=== PATIENT | male | born 1975 | race Caucasian/White ===

== ENCOUNTER → 2016-08-09 | Outpatient (CLI) | payer OTHER ==
[2016-08-09 20:40] LABS: Basophils # (A) 0.1 k/uL (0-0.2); Basophils % (A) 2 %; Eosinophils # (A) 0.2 k/uL (0-0.7); Eosinophils % (A) 3 %; HCT 45.8 % (39.0-53.0); HDW 2.68; HGB 14.9 gm/dL (13.0-17.5); Immature Gran Flag Slight; Luc # (Auto) 0.16; Luc % (Auto) 3; Lymphocytes # (A) 1.2 k/uL (1.0-4.8); Lymphocytes % (A) 17 %; MCH 27.8 pg (25.0-35.0); MCHC 32.5 g/dL (31.0-37.0); MCV 85.5 fL (80.0-100.0); Mean Platelet Volume 10.9; Monocytes # (A) 0.5 k/uL (0-1.0); Monocytes % (A) 7 %; Neutrophils # (A) 4.6 k/uL (1.3-7.7); Neutrophils % (A) 69 %; RBC 5.36 m/uL (4.30-5.90); RDW 13.6 % (11.5-15.5); WBC 6.7 k/uL (3.8-10.6); WBC (Perox) 6.63
[2016-08-09 20:58] LABS: ALT 48 U/L (21-72); AST 31 U/L (17-59); Alkaline Phosphatase 72 U/L (38-126); Anion Gap 11 mmol/L; Blood Urea Nitrogen 10 mg/dL (9-20); Calcium 9.2 mg/dL (8.4-10.2); Carbon Dioxide 30 mmol/L (22-30); Chloride 102 mmol/L (98-107); Cholesterol 177 mg/dL (<200); Glucose 111 mg/dL (74-99); HDL Cholesterol 31 mg/dL (40-60); Non-African American GFR(MDRD) >60 (>60 ml/min/1.73 sqM); Potassium 4.3 mmol/L (3.5-5.1); Sodium 143 mmol/L (137-145); Total Bilirubin 0.8 mg/dL (0.2-1.3); Triglycerides 89 mg/dL (<150)
== END | disposition home or self-care (01) ==
LOC: MMGSC 12:16
PROVIDERS: ATTEND Family Medicine
DX: R63.5 Abnormal weight gain (principal)
CPT/HCPCS: 36415; 80053; 80061; 84439; 84443; 85025

== ENCOUNTER → 2016-12-23 | Outpatient (CLI) | payer OTHER | LOC: MMGSC 16:43 | PROVIDERS: ATTEND Family Medicine | DX: H10.9 Unspecified conjunctivitis (principal) | CPT/HCPCS: 87070; 87205 ==

== ENCOUNTER → 2017-08-14 | Outpatient (CLI) | payer OTHER, MEDICAID ==
--- NOTE | 2017-08-14 15:22 | US ---
EXAMINATION TYPE: US scrotum with doppler. Grayscale and color Doppler Duplex imaging performed of t he scrotum. DATE OF EXAM: 08/14/2017 COMPARISON: NONE CLINICAL HISTORY: N50.89 testicular swelling and some pain x 1 week; gave history of varicose vein ross rgery EXAM MEASUREMENTS: TESTICLES: Right Testicle: 5.0 x 3.8 x 2.1 cm Left Testicle: 6.1 x 5.1 x 3.4 cm EPIDIDYMIS HEAD: Right Epididymis: 2.0 x 1.8 x 1.4 cm Left Epididymis: 0.7 x 0.8 x 0.5 cm Grayscale, color Doppler, spectral Doppler imaging performed of the scrotum. Right epididymal head cyst noted = 1.5 x 1.5 x 1.1cm. Multiple small calcifications scattered throughout bilateral testicle. Left epididymal body cyst = 0.4 x 0.4 x 0.4cm. Enlarged left testicle with heterogeneous appearance a nd hypervascularity and as compared to right testicle. Multiple varicoceles noted inferior epididymis bilaterally as veins are dilated > 2.5mm without Valsa lva Maneuver. Increased vascularity noted to the left testis. No evident testicular torsion. IMPRESSION: Findings could represent orchitis on the left, correlate, follow-up to exclude underlying mass. Testicular microlithiasis, consider urology consult. Bilateral varicoceles.
== END | disposition home or self-care (01) ==
LOC: RADUSWWP 14:24
PROVIDERS: ATTEND Family Medicine
DX: I86.1 Scrotal varices (principal); N50.89 Other specified disorders of the male genital organs
CPT/HCPCS: 76870; 93975

== ENCOUNTER → 2017-09-11 | Outpatient (CLI) | payer OTHER, MEDICAID ==
--- NOTE | 2017-09-12 09:30 | US ---
EXAMINATION TYPE: US scrotum with doppler. Grayscale and color Doppler Duplex imaging performed of t ravi scrotum. DATE OF EXAM: 09/11/2017 COMPARISON: US 08/14/2017 CLINICAL HISTORY: D40.12 Left testicular mass. Patient has finished a antibiotics since prior exam. EXAM MEASUREMENTS: TESTICLES: Right Testicle: 5.7 x 2.0 x 2.9 cm Left Testicle: 6.6 x 3.4 x 4.2 cm EPIDIDYMIS HEAD: Right Epididymis: 1.4 x 1.4 cm Left Epididymis: 1.9 x 1.4 cm Doppler performed to assess for testicular vascularity; good bilateral color flow and waveforms are s een. There is no evidence of testicular torsion. Presence of hydroceles: small amount of fluid around right testicle Presence of varicoceles: noted under bilateral testicle. Right testicle demonstrates microlithiasis. There is a cystic structure near epi head measures 1.2 x 1.2 cm, could represent epididymal cyst or spermatocele. Left testicle is diffusely heterogeneous and hypervascular, with small cystic area seen measures 0.5 cm. Varicoceles bilaterally, on the right th ey are filled with echoes representing slow flow, but light up with valsalva. IMPRESSION: 1. Right epididymal cyst or spermatocele. 2. Varicoceles present bilaterally. 3. Microlithiasis right testicle. Microlithiasis has been associated with cancer. 4. Heterogenous appearance of the left testicle. This has a similar appearance to the comparison stud y.
== END | disposition home or self-care (01) ==
LOC: RADUSWWP 15:39
PROVIDERS: ATTEND Urology
DX: I86.1 Scrotal varices (principal); N50.89 Other specified disorders of the male genital organs; D40.12 Neoplasm of uncertain behavior of left testis; Z88.8 Allergy status to other drugs, medicaments and biological substances
CPT/HCPCS: 76870; 93975

== ENCOUNTER → 2017-10-06 | Outpatient (CLI) | payer OTHER, MEDICAID ==
--- NOTE | 2017-10-06 19:15 | CT ---
EXAMINATION TYPE: CT abdomen pelvis w con DATE OF EXAM: 10/06/2017 COMPARISON: CT abdomen May 18, 2013. 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 CONTRAST: CT scan of the abdomen and pelvis is performed with oral and with IV Contrast, patient injected with 100ml mL of Isovue 300. FINDINGS: LUNG BASES: There is lingular linear atelectasis and/or scarring. LIVER/GB: Cholecystectomy clips are seen. Liver is diffusely low dense consistent with mild fatty inf iltration. PANCREAS: No significant abnormality is seen. SPLEEN: No significant abnormality is seen. ADRENALS: No significant abnormality is seen. KIDNEYS: There is 3 mm calculus lower pole level left kidney axial image 53. There is symmetric corti alec medullary uptake and excretion from both kidneys without hydronephrosis identified bilaterally BOWEL: Appendix is surgically absent with sutures and clips noted at base of cecum. Oral contrast junior ches the terminal ileum. There is no suspicious small or large bowel dilatation. PROSTATE/SEMINAL VESICLES: Central zone calcifications are seen in normal size prostate gland. LYMPH NODES: No greater than 1cm abdominal or pelvic lymph nodes are appreciated. OSSEOUS STRUCTURES: No significant abnormality is seen. OTHER: There are numerous surgical coils over anterior abdominal wall consistent with ventral wall he rnia repair surgery, curvilinear density or mesh is also present near axial image 69. Surgical scar l eft groin region is noted. IMPRESSION: No suspicious new mass or adenopathy is seen to suggest neoplastic recurrence. Interval successful repair of ventral wall hernia noted.
--- NOTE | 2017-10-07 12:05 | XR ---
EXAMINATION TYPE: XR chest 2V DATE OF EXAM: 10/06/2017 COMPARISON: Prior chest x-ray 05/10/2013 HISTORY: Left testicular neoplasm TECHNIQUE: Frontal and lateral views of the chest are obtained. FINDINGS: There is no focal air space opacity, pleural effusion, or pneumothorax seen. The cardiac silhouette size is within normal limits. Patient is rotated toward the right. Postop changes are note d in the upper abdomen. The osseous structures are intact. IMPRESSION: No acute cardiopulmonary process.
== END | disposition home or self-care (01) ==
LOC: RADCTMAIN 16:51
PROVIDERS: ATTEND Urology
DX: D40.12 Neoplasm of uncertain behavior of left testis (principal); Z98.890 Other specified postprocedural states
CPT/HCPCS: 71046; 74177; Q9967

== ENCOUNTER 2017-10-15 15:56 | Emergency (ER) | payer OTHER, MEDICAID ==
[2017-10-15 17:31] VITALS: BP 104/56; PULSE 93; RESP 20; TEMP 98.6
--- NOTE | 2017-10-15 17:38 | ED ---
General Adult HPI - General Chief complaint: Extremity Problem,Nontraumatic Stated complaint: Poss blood clot Time Seen by Provider: 10/15/17 16:21 Source: patient, RN notes reviewed, old records reviewed Mode of arrival: ambulatory Limitations: no limitations - History of Present Illness Initial comments: This is a 42-year-old male the ER for evaluation of possible DVT. Patient concern he may of DVT after having surgery testicular surgery earlier this week. Patient has recent diagnosis of testicular mass, prior history of DVT after surgery. Not currently on anticoagulation. - Related Data Home Medications Medication Instructions Recorded Confirmed No Known Home Medications [No 10/15/17 10/15/17 Known Home Medications] Allergies Allergy/AdvReac Type Severity Reaction Status Date / Time rivaroxaban [From Xarelto] Allergy Rash/Hives Verified 10/15/17 16:35 Review of Systems ROS Statement: Those systems with pertinent positive or pertinent negative responses have been documented in the HPI. ROS Other: All systems not noted in ROS Statement are negative. Past Medical History Past Medical History: Deep Vein Thrombosis (DVT) Additional Past Medical History / Comment(s): KIDNEY STONES History of Any Multi-Drug Resistant Organisms: None Reported Past Surgical History: Cholecystectomy, Hernia Repair Additional Past Surgical History / Comment(s): UMBILICAL HERNIA, testicular surgery September 24 Past Anesthesia/Blood Transfusion Reactions: Postoperative Nausea & Vomiting ( PONV) Past Psychological History: No Psychological Hx Reported Smoking Status: Never smoker Past Alcohol Use History: Occasional Past Drug Use History: None Reported General Exam Limitations: no limitations Course Vital Signs 10/15/17 10/15/17 16:09 17:28 Temperature 100.5 F H 98.6 F Pulse Rate 101 H 93 Respiratory 18 20 Rate Blood Pressure 140/72 104/56 O2 Sat by Pulse 98 95 Oximetry - Reevaluation(s) Reevaluation #1: 10/15/17 17:37 Patient is in no acute distress, no pain no shortness of breath no chest pain Medical Decision Making - Medical Decision Making 42 male the ER for evaluation of leg pain, negative for DVT on ultrasound. Patient can be discharged home - Radiology Data Radiology results: report reviewed (Ultrasound lower extremity negative for , L superficial DVT), image reviewed Disposition Clinical Impression: Left leg pain, Superficial thrombosis of left lower extremity Disposition: HOME SELF-CARE Condition: Good Is patient prescribed a controlled substance at d/c from ED?: No Referrals: Yasmin Tejeda MD [Primary Care Provider] - 1-2 days
--- NOTE | 2017-10-15 18:04 | US ---
EXAMINATION TYPE: US venous doppler duplex LE LT DATE OF EXAM: 10/15/2017 5:33 PM COMPARISON: CLINICAL HISTORY: Pain. Left upper thigh pain. No swelling or redness. Recent testicular surgery fo r Cancer. Not on blood thinners. Hx of SVT at GSV SIDE PERFORMED: Left TECHNIQUE: The lower extremity deep venous system is examined utilizing real time linear array sonog gio with graded compression, doppler sonography and color-flow sonography. VESSELS IMAGED: External Iliac Vein (EIV) Common Femoral Vein Deep Femoral Vein Greater Saphenous Vein * Femoral Vein Popliteal Vein Small Saphenous Vein * Proximal Calf Veins (* superficial vessels) Left Leg: Negative for DVT. POSITIVE for SVT in GSV with partial compression. Echogenic echoes see n within. IMPRESSION: No evidence of deep venous thrombosis. There is some mild thrombus in the long saphenous vein which is a superficial vein.
== END 2017-10-15 18:31 | disposition home or self-care (01) ==
LOC: EC 15:56
DX: I82.402 Acute embolism and thrombosis of unspecified deep veins of left lower extremity (principal); Z86.718 Personal history of other venous thrombosis and embolism; Z88.8 Allergy status to other drugs, medicaments and biological substances
CPT/HCPCS: 99284

== ENCOUNTER 2017-12-09 17:37 | Emergency (ER) | payer OTHER, MEDICAID ==
--- NOTE | 2017-12-09 19:28 | ED ---
General Adult HPI - General Chief complaint: Extremity Injury, Lower Stated complaint: Leg pain Time Seen by Provider: 12/09/17 18:00 Source: patient, RN notes reviewed Mode of arrival: ambulatory Limitations: no limitations - History of Present Illness Initial comments: This is a 42-year-old male who presents emergency Department with a past medical history significant for DVT. Patient states that occurred after surgery however. Patient also has a history of testicular cancer. Patient comes in today because he has a one-day history of left groin pain and left calf pain. Patient states that started to occur after he had a busy day at work. Patient states it is worse with movement. Patient states he called his primary medical care doctor primary medical care doctor wanted to come in for a rule out DVT. Patient denies any difficult breathing or chest pain. She denies any swelling to the leg patient denies any erythema to light. Patient states palpating the calf is not tender however walking is painful. Patient denies any other symptoms at this time. Patient states the pain is exacerbated by movement if he lies still he has no pain. - Related Data Home Medications Medication Instructions Recorded Confirmed Aspirin EC [Ecotrin] 325 mg PO DAILY 12/09/17 12/09/17 Allergies Allergy/AdvReac Type Severity Reaction Status Date / Time rivaroxaban [From Xarelto] Allergy Rash/Hives Verified 12/09/17 19:29 Review of Systems ROS Statement: Those systems with pertinent positive or pertinent negative responses have been documented in the HPI. ROS Other: All systems not noted in ROS Statement are negative. Past Medical History Past Medical History: Deep Vein Thrombosis (DVT) Additional Past Medical History / Comment(s): KIDNEY STONES History of Any Multi-Drug Resistant Organisms: None Reported Past Surgical History: Cholecystectomy, Hernia Repair Additional Past Surgical History / Comment(s): UMBILICAL HERNIA, testicular surgery September 24 Past Anesthesia/Blood Transfusion Reactions: Postoperative Nausea & Vomiting ( PONV) Past Psychological History: No Psychological Hx Reported Smoking Status: Never smoker Past Alcohol Use History: Rare Past Drug Use History: None Reported General Exam - General Exam Comments Initial Comments: GENERAL: Patient is well-developed and well-nourished. Patient is nontoxic and well- hydrated and is in no acute distress. ENT: Neck is soft and supple. No significant lymphadenopathy is noted. Oropharynx is clear. Moist mucous membranes. Neck has full range of motion without eliciting any pain. There is no thyroid enlargement and no masses were felt. EYES: The sclera were anicteric and conjunctiva were pink and moist. Extraocular movements were intact and pupils were equal round and reactive to light. Eyelids were unremarkable. PULMONARY: Unlabored respirations. Good breath sounds bilaterally. No audible rales rhonchi or wheezing was noted. CARDIOVASCULAR: There is a regular rate and rhythm without any murmurs gallops or rubs. Patient 's got good DP pulses. ABDOMEN: Soft and nontender with normal bowel sounds. No palpable organomegaly was noted. There is no palpable pulsatile mass. SKIN: Skin is clear with no lesions or rashes and otherwise unremarkable. NEUROLOGIC: Patient is alert and oriented x3. Cranial nerves II through XII are grossly intact. Motor and sensory are also intact. Normal speech, volume and content. Symmetrical smile. Cerebellar exam grossly intact. MUSCULOSKELETAL: Normal extremities with adequate strength and full range of motion. No lower extremity swelling or edema. No calf tenderness. There is no erythema to lower extremity. I cannot palpate any area of tenderness in the thigh groin or calf. PSYCHIATRIC: Normal psychiatric evaluation. Limitations: no limitations Course Vital Signs 12/09/17 18:03 Temperature 98.7 F Pulse Rate 93 Respiratory 16 Rate Blood Pressure 126/83 O2 Sat by Pulse 95 Oximetry Medical Decision Making - Medical Decision Making Ultrasound showed no DVT Disposition Clinical Impression: Muscle strain Disposition: HOME SELF-CARE Condition: Good Instructions: Muscle Strain (ED) Is patient prescribed a controlled substance at d/c from ED?: No Referrals: Yasmin Tejeda MD [Primary Care Provider] - 1-2 days Time of Disposition: 20:16
--- NOTE | 2017-12-09 20:11 | US ---
EXAMINATION TYPE: US venous doppler duplex LE LT DATE OF EXAM: 12/09/2017 7:04 PM COMPARISON: NONE CLINICAL HISTORY: Pain. Left leg pain SIDE PERFORMED: Left TECHNIQUE: The lower extremity deep venous system is examined utilizing real time linear array sonog gio with graded compression, doppler sonography and color-flow sonography. VESSELS IMAGED: External Iliac Vein (EIV) Common Femoral Vein Deep Femoral Vein Greater Saphenous Vein * Femoral Vein Popliteal Vein Small Saphenous Vein * Proximal Calf Veins (* superficial vessels) Left Leg: Negative for DVT No evidence of DVT left leg. No thrombus seen in GSV as on previous study. IMPRESSION: No evidence of deep venous thrombosis in left leg.
[2017-12-09 20:48] VITALS: BP 136/76; PULSE 69; RESP 18; TEMP 98
--- NOTE | 2017-12-11 04:28 | CDI ---
Documentation Clarification OP Dear Dr. Juan Lopez Please provide muscle strain specific location. Thank you, Figueroa Lucero [employer] If you have any questions, please contact [employer] at [phone] [facility]
== END 2017-12-09 20:49 | disposition home or self-care (01) ==
LOC: EC 17:37
DX: S39.011A Strain of muscle, fascia and tendon of abdomen, initial encounter (principal); S86.912A Strain of unspecified muscle(s) and tendon(s) at lower leg level, left leg, initial encounter; Z90.49 Acquired absence of other specified parts of digestive tract; Z85.47 Personal history of malignant neoplasm of testis; Z86.718 Personal history of other venous thrombosis and embolism; Z79.82 Long term (current) use of aspirin; Z88.8 Allergy status to other drugs, medicaments and biological substances
CPT/HCPCS: 99283

== ENCOUNTER → 2017-12-30 | Outpatient (CLI) | payer OTHER, MEDICAID ==
--- NOTE | 2017-12-30 14:17 | XR ---
EXAM TYPE: LUMBAR SPINE X RAY SERIES COMPARISON: NONE HISTORY: Pain TECHNIQUE: 3 views are submitted. FINDINGS: Alignment is anatomic. The pedicles are intact. The transverse processes are intact. There is no c ompression deformities. Mild hypertrophic spurring noted anteriorly. IMPRESSION: 1. No acute process.
== END | disposition home or self-care (01) ==
LOC: RADXRMAIN 13:19
PROVIDERS: ATTEND Family Medicine
DX: C62.12 Malignant neoplasm of descended left testis (principal); I82.812 Embolism and thrombosis of superficial veins of left lower extremity; D68.59 Other primary thrombophilia; Z71.3 Dietary counseling and surveillance
CPT/HCPCS: 72100

== ENCOUNTER → 2018-01-19 | Outpatient (CLI) | payer OTHER, MEDICAID ==
[2018-01-19 12:18] LABS: Blood Urea Nitrogen 9 mg/dL (9-20)
--- NOTE | 2018-01-19 12:18 | US ---
EXAMINATION TYPE: US venous doppler duplex LE LT DATE OF EXAM: 01/19/2018 11:58 AM COMPARISON: NONE CLINICAL HISTORY: M79.662 pain LLE. Left groin pain. Hx of SVT of GSV. Has not taken aspirin in a fe w weeks. SIDE PERFORMED: Left TECHNIQUE: The lower extremity deep venous system is examined utilizing real time linear array sonog gio with graded compression, doppler sonography and color-flow sonography. VESSELS IMAGED: External Iliac Vein (EIV) Common Femoral Vein Deep Femoral Vein Greater Saphenous Vein * Femoral Vein Popliteal Vein Small Saphenous Vein * Proximal Calf Veins (* superficial vessels) Grayscale, color doppler, spectral doppler imaging performed of the deep veins of the left lower extr emity. There is normal flow, compressibility, vascular waveforms. Left Leg: Negative for DVT IMPRESSION: No sonographic evidence of deep venous thrombosis within the left lower extremity.
--- NOTE | 2018-01-19 12:50 | CT ---
EXAMINATION TYPE: CT brain w con DATE OF EXAM: 01/19/2018 COMPARISON: None HISTORY: Headache, testicular CA CT DLP: 1171 mGycm Automated exposure control for dose reduction was used. CONTRAST: CT scan of the head is performed with IV Contrast, patient injected with 100 mL of Isovue 300. FINDINGS: There is no abnormal enhancing mass or midline shift identified. The ventricles and sulci are within normal limits in size. The globes are intact and the visualized sinuses are clear. If symptoms pers ist consider MRI. IMPRESSION: Negative contrast enhanced head CT exam.
== END | disposition home or self-care (01) ==
LOC: RADCTMAIN 11:18
PROVIDERS: ATTEND Internal Medicine Hematology & Oncology
DX: M79.662 Pain in left lower leg (principal); R22.42 Localized swelling, mass and lump, left lower limb
CPT/HCPCS: 82565; 84520; 93971; 70460; 36415; Q9967

== ENCOUNTER → 2018-03-10 | Outpatient (CLI) | payer OTHER, MEDICAID ==
--- NOTE | 2018-03-11 10:24 | CT ---
EXAMINATION TYPE: CT ChestAbdPelvis w con DATE OF EXAM: 03/10/2018 INDICATION: Malignant neoplasm of descended left testis. COMPARISON: 10/06/2017 CT DLP: 2995 mGycm CONTRAST: Performed with Oral Contrast and with IV Contrast, patient injected with 100 mL of Isovue M300. TECHNIQUE: Axial images at 5 mm thick sections. Reconstructed images in the coronal plane. Delayed images through the kidneys. FINDINGS: CT CHEST: Portion of the thyroid visualized is normal. No suspicious lung nodules or focal infiltrates are present. No enlarged mediastinal or hilar adenopathy is evident. No suspicious axillary adenopathy is evident. The ascending aorta diameter at the level of the main pulmonary artery is 3.1 cm. The main pulmonary artery diameter at the bifurcation is 2.[address] ABDOMEN: There is an anterior abdominal wall hernia containing mesenteric fat with an opening of 2 .9 cm in the upper abdomen. This appears to be superior to a prior hernia repair. No suspicious periaortic retrocaval or. Venous adenopathy at the level of the renal veins is evident. No pelvic adenopathy enlarged by CT criteria is evident. Note is made of prominent inguinal adenopat hy measuring 1.7 cm and 1.3 cm right. These were present previously and are stable in size. Liver: Normal Spleen: Normal Pancreas: Normal Adrenal glands: The adrenal glands are normal. Gallbladder: Surgically absent Kidneys: No masses are evident. No hydronephrosis is present. No cysts are present. There is a 0.4 cm calcification which is nonobstructing inferior pole left kidney. Aorta: Normal Inferior vena cava: Normal. CT PELVIS: Loops of bowel within the abdomen and pelvis are normal. There are loops of bowel which are incom pletely distended or lack oral contrast limiting their evaluation. Appendix: Not identified. This may be surgically absent. No suspicious tubular structures or inflamma tory changes are evident. Urinary bladder: Decompressed with limited evaluation. Genitourinary structures: Prostate contains calcification. Osseous structures: There are scattered small bone islands within the femoral heads. Sclerotic lesion s are considered less likely. Degenerative changes are at sacroiliac joints. Mild facet degenerative changes present. IMPRESSIONS: 1. No suspicious changes suggest metastatic disease. 2. Stable bilateral prominent inguinal adenopathy. No new adenopathy or additional enlarged adenopath y is evident.
== END | disposition home or self-care (01) ==
LOC: RADCTMAIN 14:35
PROVIDERS: ATTEND Internal Medicine Hematology & Oncology
DX: C62.12 Malignant neoplasm of descended left testis (principal); Z88.9 Allergy status to unspecified drugs, medicaments and biological substances
CPT/HCPCS: 71260; 74177; Q9967

== ENCOUNTER → 2018-06-22 | Outpatient (CLI) | payer OTHER ==
--- NOTE | 2018-06-22 15:09 | CT ---
EXAMINATION TYPE: CT ChestAbdPelvis w con DATE OF EXAM: 06/22/2018 COMPARISON: 03/10/2018 HISTORY: 43-year-old male Malignant neoplasm of descended left testis TECHNIQUE: Contiguous axial scanning of the chest, abdomen, and pelvis performed with IV Contrast, pa tient injected with 100 mL of Isovue 300. Delayed images through the kidneys were obtained. Coronal/s agittal reconstructions performed. CT DLP: 3497.10 mGycm Automated exposure control for dose reduction was used. FINDINGS: Chest: Heart normal size without pericardial effusion. Aorta normal caliber with conventional arch vessel branching anatomy. No thoracic lymphadenopathy by CT size criteria. Some mild hazy opacity posterior right upper lobe, probably atelectasis. Additional strandy atelectas is in the lower lungs. No consolidation or pleural effusion. ABDOMEN: Liver enlarged measuring 20.4 cm with diffuse low-attenuation. Allowing for arterial phase imaging, n o focal liver lesion is identified. Cholecystectomy clips. No biliary ductal dilatation. Portal venou s system is patent on the delayed kidney images. Adrenal glands, right kidney, spleen, and pancreas appear within normal limits. 4 mm nonobstructive c alculus lower pole left kidney. No dilated small bowel, free fluid, or free air. Prior mesh repair of ventral abdominal wall there is redemonstrated left paramedian midline omental f at-containing hernia measuring 7.0 cm wide with the hernia neck measuring 3.0 cm wide, not significan t changed from prior. Pelvis: Bladder is urine distended. Central prosthetic calcifications. Some prominent bilateral external [place] c chain lymph nodes measure up to 1 cm on the right and 9 mm on the left, stable from 03/10/2018. Pelv ic phlebolith. No abnormal fluid collection in the pelvis. Inguinal chain lymph nodes measure up to 1 .6 cm on the left, slightly smaller from 1.7 cm, previously. Bones: No osseous destructive process. IMPRESSION: 1. STABLE PROMINENT BILATERAL EXTERNAL ILIAC CHAIN LYMPH NODES MEASURING UP TO 1 CM AND STABLE TO SLI GHTLY SMALLER INGUINAL CHAIN LYMPH NODES MEASURING UP TO 1.6 CM. NO SUSPICIOUS CHANGES TO SUGGEST MET ASTATIC DISEASE AT THIS TIME. 2. 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 3. FORMAL METERED NONOBSTRUCTIVE LEFT RENAL CALCULUS. 4. PRIOR VENTRAL ABDOMINAL WALL MESH REPAIR WITH A RESIDUAL OR RECURRENT 7 CM WIDE FAT-CONTAINING ABD OMINAL WALL HERNIA REDEMONSTRATED.
== END | disposition home or self-care (01) ==
LOC: RADCTMAIN 10:31
PROVIDERS: ATTEND Internal Medicine Hematology & Oncology
DX: C62.12 Malignant neoplasm of descended left testis (principal); K76.0 Fatty (change of) liver, not elsewhere classified; N20.0 Calculus of kidney; Z98.890 Other specified postprocedural states; K43.9 Ventral hernia without obstruction or gangrene; R91.8 Other nonspecific abnormal finding of lung field
CPT/HCPCS: 71260; 74177; Q9967

== ENCOUNTER 2018-06-26 06:02 | Emergency (ER) | payer OTHER ==
--- NOTE | 2018-06-26 06:20 | ED ---
Syncope HPI - General Chief Complaint: Syncope Stated Complaint: Syncope Time Seen by Provider: 06/26/18 06:08 Source: EMS Mode of arrival: EMS Limitations: no limitations - History of Present Illness Initial Comments: This patient is a 43-year-old man who states that between 1 and 2 hours ago, while he was at work he began feeling very bad. He states he was feeling like he might pass out so he went to lie down on the floor. He was also having generalized weakness. He states that while he was lying on the floor felt like he was spinning. Patient denies chest pain, palpitations, dizziness, diaphoresis. He did have some nausea but no vomiting area patient was denying pain anywhere. No pain in the chest, abdomen, head or anywhere else. MD Complaint: felt faint, almost passed out Onset/Timin -: hour(s) Prodromal Symptoms: lightheaded, vertigo Injuries Sustained Associated with Event: None Current Symptoms: lightheaded, vertigo Treatments Prior to Arrival: none - Related Data Home Medications Medication Instructions Recorded Confirmed Aspirin EC [Ecotrin] 325 mg PO DAILY 12/09/17 06/26/18 Allergies Allergy/AdvReac Type Severity Reaction Status Date / Time rivaroxaban [From Xarelto] Allergy Rash/Hives Verified 06/26/18 07:16 Review of Systems ROS Statement: Those systems with pertinent positive or pertinent negative responses have been documented in the HPI. ROS Other: All systems not noted in ROS Statement are negative. Constitutional: Reports: weakness (Generalized). Denies: fever, chills Eyes: Denies: vision change Respiratory: Denies: cough, dyspnea Cardiovascular: Denies: chest pain, palpitations, orthopnea, edema, syncope Gastrointestinal: Reports: nausea. Denies: abdominal pain, vomiting, diarrhea, constipation Genitourinary: Denies: dysuria Musculoskeletal: Denies: back pain Skin: Denies: rash Neurological: Denies: headache, weakness, numbness, paresthesias Past Medical History Past Medical History: Deep Vein Thrombosis (DVT) Additional Past Medical History / Comment(s): KIDNEY STONES History of Any Multi-Drug Resistant Organisms: None Reported Past Surgical History: Appendectomy, Cholecystectomy, Hernia Repair Additional Past Surgical History / Comment(s): UMBILICAL HERNIA, testicular surgery September 24. Varicpse vein stripping Past Anesthesia/Blood Transfusion Reactions: Postoperative Nausea & Vomiting ( PONV) Past Psychological History: No Psychological Hx Reported Smoking Status: Never smoker Past Alcohol Use History: Rare Past Drug Use History: None Reported General Exam Limitations: no limitations General appearance: alert, in no apparent distress Head exam: Present: atraumatic, normocephalic Eye exam: Present: normal appearance. Absent: scleral icterus, conjunctival injection ENT exam: Present: mucous membranes dry Neck exam: Present: normal inspection, full ROM. Absent: meningismus Respiratory exam: Present: normal lung sounds bilaterally. Absent: respiratory distress, wheezes, rales, rhonchi, stridor Cardiovascular Exam: Present: regular rate, normal rhythm, normal heart sounds. Absent: systolic murmur, diastolic murmur, rubs, gallop GI/Abdominal exam: Present: soft. Absent: distended, tenderness, guarding, rebound, rigid, mass Extremities exam: Present: normal inspection, normal capillary refill. Absent: pedal edema, calf tenderness Neurological exam: Present: alert, oriented X3, CN II-XII intact. Absent: motor sensory deficit Skin exam: Present: warm, dry, intact, normal color. 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 ] Respiratory 20 16 Rate Blood Pressure 143/76 129/76 O2 Sat by Pulse 95 96 Oximetry EKG Findings - EKG Results: EKG: interpreted by ERMD, sinus rhythm (Rate 91 bpm), normal axis, normal ST/T - Blocks, [place], Hypertrophy, ST Abn: AV and intraventricular conduction: right bundle branch block (fixed/ intermittent, complete/incomplete) (Incomplete ) Medical Decision Making - Lab Data Result diagrams: 06/26/18 06:19 06/26/18 06:19 Lab Results 06/26/18 06/26/18 06/26/18 Range/Units 06:16 06:19 06:19 WBC 8.1 (3.8-10.6) k/uL RBC 5.24 (4.30-5.90) m/uL Hgb 14.2 (13.0-17.5) gm/dL Hct 43.8 (39.0-53.0) % MCV 83.5 (80.0-100.0) fL MCH 27.0 (25.0-35.0) pg MCHC 32.3 (31.0-37.0) g/dL RDW 13.4 (11.5-15.5) % Plt Count 213 (150-450) k/uL Neutrophils % 57 % Lymphocytes % 32 % Monocytes % 6 % Eosinophils % 2 % Basophils % 1 % Neutrophils # 4.7 (1.3-7.7) k/uL Lymphocytes # 2.6 (1.0-4.8) k/uL Monocytes # 0.5 (0-1.0) k/uL Eosinophils # 0.2 (0-0.7) k/uL Basophils # 0.1 (0-0.2) k/uL PT (9.0-12.0) sec INR (<1.2) APTT (22.0-30.0) sec D-Dimer (<0.60) mg/L FEU Sodium (137-145) mmol/L Potassium (3.5-5.1) mmol/L Chloride (98-107) mmol/L Carbon Dioxide (22-30) mmol/L Anion Gap mmol/L BUN (9-20) mg/dL Creatinine (0.66-1.25) mg/dL Est GFR (CKD-EPI)AfAm (>60 ml/min/1.73 sqM) Est GFR (CKD-EPI)NonAf (>60 ml/min/1.73 sqM) Glucose (74-99) mg/dL POC Glucose (mg/dL) 127 H (75-99) mg/dL POC Glu Nib Assembler ID Juan Diego Laguerre Calcium (8.4-10.2) mg/dL Total Bilirubin (0.2-1.3) mg/dL AST (17-59) U/L ALT (21-72) U/L Alkaline Phosphatase (38-126) U/L Total Creatine Kinase 89 (55-170) U/L CK-MB (CK-2) 0.7 (0.0-2.4) ng/mL CK-MB (CK-2) Rel Index 0.8 Troponin I <0.012 (0.000-0.034) ng/mL Total Protein (6.3-8.2) g/dL Albumin (3.5-5.0) g/dL Urine Color Urine Appearance (Clear) Urine pH (5.0-8.0) Ur Specific [place] (1.001-1.035) Urine Protein (Negative) Urine Glucose (UA) (Negative) Urine Ketones (Negative) Urine Blood (Negative) Urine Nitrite (Negative) Urine Bilirubin (Negative) Urine Urobilinogen (<2.0) mg/dL Ur Leukocyte Esterase (Negative) 06/26/18 06/26/18 06/26/18 Range/Units 06:19 06:19 06:19 WBC (3.8-10.6) k/uL RBC (4.30-5.90) m/uL Hgb (13.0-17.5) gm/dL Hct (39.0-53.0) % MCV (80.0-100.0) fL MCH (25.0-35.0) pg MCHC (31.0-37.0) g/dL RDW (11.5-15.5) % Plt Count (150-450) k/uL Neutrophils % % Lymphocytes % % Monocytes % % Eosinophils % % Basophils % % Neutrophils # (1.3-7.7) k/uL Lymphocytes # (1.0-4.8) k/uL Monocytes # (0-1.0) k/uL Eosinophils # (0-0.7) k/uL Basophils # (0-0.2) k/uL PT 10.1 (9.0-12.0) sec INR 0.9 (<1.2) APTT 24.2 (22.0-30.0) sec D-Dimer 0.32 (<0.60) mg/L FEU Sodium 139 (137-145) mmol/L Potassium 4.1 (3.5-5.1) mmol/L Chloride 105 (98-107) mmol/L Carbon Dioxide 27 (22-30) mmol/L Anion Gap 7 mmol/L BUN 17 (9-20) mg/dL Creatinine 0.82 (0.66-1.25) mg/dL Est GFR (CKD-EPI)AfAm >90 (>60 ml/min/1.73 sqM) Est GFR (CKD-EPI)NonAf >90 (>60 ml/min/1.73 sqM) Glucose 129 H (74-99) mg/dL POC Glucose (mg/dL) (75-99) mg/dL POC Glu Nib Assembler ID Calcium 8.9 (8.4-10.2) mg/dL Total Bilirubin 0.5 (0.2-1.3) mg/dL AST 21 (17-59) U/L ALT 31 (21-72) U/L Alkaline Phosphatase 60 (38-126) U/L Total Creatine Kinase (55-170) U/L CK-MB (CK-2) (0.0-2.4) ng/mL CK-MB (CK-2) Rel Index Troponin I (0.000-0.034) ng/mL Total Protein 7.1 (6.3-8.2) g/dL Albumin 4.1 (3.5-5.0) g/dL Urine Color Yellow Urine Appearance Clear (Clear) Urine pH 5.0 (5.0-8.0) Ur Specific [place] 1.019 (1.001-1.035) Urine Protein Negative (Negative) Urine Glucose (UA) Negative (Negative) Urine Ketones Negative (Negative) Urine Blood Negative (Negative) Urine Nitrite Negative (Negative) Urine Bilirubin Negative (Negative) Urine Urobilinogen <2.0 (<2.0) mg/dL Ur Leukocyte Esterase Negative (Negative) Disposition Clinical Impression: Near syncope Disposition: HOME SELF-CARE Condition: Good Instructions: Near Syncope (ED) Is patient prescribed a controlled substance at d/c from ED?: No Referrals: Yasmin Tejeda MD [Primary Care Provider] - 1-2 days
[2018-06-26 06:24] LABS: Glucose,Whole Blood 127 mg/dL (75-99)
[2018-06-26] MEDS ORDERED: SODIUM CHLORIDE 0.9% 1,000 ML IV ONE (06:27)
[2018-06-26 06:33] LABS: Appearance,Urine Clear (Clear); Basophils # (A) 0.1 k/uL (0-0.2); Basophils % (A) 1 %; Bilirubin,Urine Negative (Negative); Blood,Urine Negative (Negative); Color,Urine Yellow; Eosinophils # (A) 0.2 k/uL (0-0.7); Eosinophils % (A) 2 %; Glucose,Urine (UA) Negative (Negative); HCT 43.8 % (39.0-53.0); HGB 14.2 gm/dL (13.0-17.5); Ketones,Urine Negative (Negative); Leukocyte Esterase,Urine Negative (Negative); Lymphocytes # (A) 2.6 k/uL (1.0-4.8); Lymphocytes % (A) 32 %; MCHC 32.3 g/dL (31.0-37.0); MCV 83.5 fL (80.0-100.0); Mean Platelet Volume 7.9; Monocytes # (A) 0.5 k/uL (0-1.0); Monocytes % (A) 6 %; Neutrophils # (A) 4.7 k/uL (1.3-7.7); Neutrophils % (A) 57 %; Nitrite,Urine Negative (Negative); Platelet Count 213 k/uL (150-450); Protein,Urine Negative (Negative); RBC 5.24 m/uL (4.30-5.90); RDW 13.4 % (11.5-15.5); Specific Gravity,Urine 1.019 (1.001-1.035); Urobilinogen,Urine <2.0 mg/dL (<2.0); WBC 8.1 k/uL (3.8-10.6)
[2018-06-26 06:45] LABS: ALT 31 U/L (21-72); AST 21 U/L (17-59); Albumin 4.1 g/dL (3.5-5.0); Alkaline Phosphatase 60 U/L (38-126); Anion Gap 7 mmol/L; Blood Urea Nitrogen 17 mg/dL (9-20); Calcium 8.9 mg/dL (8.4-10.2); Carbon Dioxide 27 mmol/L (22-30); Chloride 105 mmol/L (98-107); Glucose 129 mg/dL (74-99); Potassium 4.1 mmol/L (3.5-5.1); Sodium 139 mmol/L (137-145); Total Bilirubin 0.5 mg/dL (0.2-1.3); Total Protein 7.1 g/dL (6.3-8.2)
[2018-06-26 06:52] LABS: D-Dimer 0.32 mg/L FEU (<0.60); INR 0.9 (<1.2); Partial Thromboplastin Time 24.2 sec (22.0-30.0); Prothrombin Time 10.1 sec (9.0-12.0)
[2018-06-26 06:57] LABS: Creatine Kinase 89 U/L (55-170)
[2018-06-26 07:01] VITALS: PULSE 84
--- NOTE | 2018-06-26 07:09 | XR ---
EXAMINATION TYPE: XR chest 2V DATE OF EXAM: 06/26/2018 COMPARISON: 10/06/2017 HISTORY: Syncope TECHNIQUE: Frontal and lateral views of the chest are obtained. FINDINGS: There is no heart failure nor confluent pneumonic infiltrate. Costophrenic angles are jenni r. There are chest leads. Heart size is probably normal. Bony thorax appears intact. IMPRESSION: No active cardiopulmonary disease. No change.
[2018-06-26 07:10] LABS: Creatine Kinase MB 0.7 ng/mL (0.0-2.4); Troponin I <0.012 ng/mL (0.000-0.034)
[2018-06-26 08:00] VITALS: BP 125/79; RESP 18; TEMP 98.1
== END 2018-06-26 07:51 | disposition home or self-care (01) ==
LOC: EC 06:02
DX: R55 Syncope and collapse (principal); R53.1 Weakness; R11.0 Nausea; Z86.718 Personal history of other venous thrombosis and embolism; Z79.82 Long term (current) use of aspirin; Z88.8 Allergy status to other drugs, medicaments and biological substances
CPT/HCPCS: 36415; 71046; 80053; 81003; 82550; 82553; 84484; 85025; 85379; 85610; 85730; 93005; 96360; 99285

== ENCOUNTER → 2018-07-14 | Outpatient (CLI) | payer MEDICAID, OTHER | END | disposition home or self-care (01) | LOC: RADMRIMAIN 17:15 | PROVIDERS: ATTEND Internal Medicine Hematology & Oncology | DX: Z53.9 Procedure and treatment not carried out, unspecified reason (principal) ==

== ENCOUNTER 2018-08-18 11:39 | Observation (INO) | payer OTHER ==
[2018-08-18] MEDS ORDERED: ONDANSETRON 4 MG/2 ML VIAL IVP STA (12:11)
[2018-08-18] MEDS ORDERED: MORPHINE SULFATE 2 MG/ML SYRINGE IVP STA (12:11)
[2018-08-18] MEDS ORDERED: SODIUM CHLORIDE 0.9% 1,000 ML IV STA (12:11)
--- NOTE | 2018-08-18 12:15 | ED ---
General Adult HPI - General Chief complaint: Abdominal Pain Stated complaint: Stomach pain Time Seen by Provider: 08/18/18 12:06 Source: patient, RN notes reviewed, old records reviewed Mode of arrival: ambulatory Limitations: no limitations - History of Present Illness Initial comments: 43 -year-old male presenting for evaluation of abdominal cramping, nausea vomiting and diarrhea. Patient has had 4 days of progressive gastrointestinal illness. Initially began as vomiting, has progressed to diarrhea. Patient states his symptoms are somewhat improved, he has loose stool only now. No blood. No vomiting. He has mild crampy abdominal pain which is persistent. He is passing gas. No fever or chills. He was seen by his primary care physician today, reported to have an ileus and sent to the emergency department for further evaluation. - Related Data Home Medications Medication Instructions Recorded Confirmed Aspirin EC [Ecotrin] 325 mg PO DAILY 12/09/17 08/18/18 Allergies Allergy/AdvReac Type Severity Reaction Status Date / Time rivaroxaban [From Xarelto] Allergy Rash/Hives Verified 08/18/18 12:10 Review of Systems ROS Statement: Those systems with pertinent positive or pertinent negative responses have been documented in the HPI. ROS Other: All systems not noted in ROS Statement are negative. Past Medical History Past Medical History: Deep Vein Thrombosis (DVT) Additional Past Medical History / Comment(s): KIDNEY STONES History of Any Multi-Drug Resistant Organisms: None Reported Past Surgical History: Appendectomy, Cholecystectomy, Hernia Repair Additional Past Surgical History / Comment(s): UMBILICAL HERNIA, testicular surgery September 24. Varicpse vein stripping Past Anesthesia/Blood Transfusion Reactions: Postoperative Nausea & Vomiting (PONV) Past Psychological History: No Psychological Hx Reported Smoking Status: Never smoker Past Alcohol Use History: Rare Past Drug Use History: None Reported General Exam Limitations: no limitations General appearance: alert, in no apparent distress Head exam: Present: atraumatic, normocephalic Eye exam: Present: normal appearance, PERRL ENT exam: Present: normal exam Neck exam: Present: normal inspection. Absent: tenderness, meningismus Respiratory exam: Present: normal lung sounds bilaterally. Absent: respiratory distress, wheezes Cardiovascular Exam: Present: regular rate, normal rhythm GI/Abdominal exam: Present: soft. Absent: distended, tenderness, guarding, rebound Extremities exam: Present: normal inspection, normal capillary refill. Absent: pedal edema Back exam: Present: normal inspection. Absent: full ROM, tenderness Neurological exam: Present: alert, oriented X3 Psychiatric exam: Present: normal affect, normal mood Skin exam: Present: warm, dry, intact. Absent: cyanosis, diaphoretic Course Vital Signs 08/18/18 08/18/18 11:54 12:52 Temperature 97.9 F Pulse Rate 97 85 Respiratory 18 18 Rate Blood Pressure 112/70 129/79 O2 Sat by Pulse 100 92 L Oximetry Medical Decision Making - Medical Decision Making 43 male presenting with nausea vomiting and diarrhea. X-ray at primary care office did show concern for ileitis. Patient has mildly distended abdomen, no focal tenderness. He was passing gas up until yesterday evening, he's had 2 small bowel movements today. Symptoms may be improving, however repeat x-ray does show concern for enteritis versus ileus. Given this history, will observe the patient overnight for symptom control, IV hydration. Case discussed with admitting physician, will accept. - Lab Data Result diagrams: 08/18/18 12:41 08/18/18 12:41 Lab Results 08/18/18 08/18/18 08/18/18 Range/Units 12:41 12:41 13:40 WBC 6.5 (3.8-10.6) k/uL RBC 5.61 (4.30-5.90) m/uL Hgb 15.6 (13.0-17.5) gm/dL Hct 45.6 (39.0-53.0) % MCV 81.2 (80.0-100.0) fL MCH 27.7 (25.0-35.0) pg MCHC 34.1 (31.0-37.0) g/dL RDW 13.5 (11.5-15.5) % Plt Count 200 (150-450) k/uL Neutrophils % 65 % Lymphocytes % 22 % Monocytes % 9 % Eosinophils % 1 % Basophils % 1 % Neutrophils # 4.2 (1.3-7.7) k/uL Lymphocytes # 1.4 (1.0-4.8) k/uL Monocytes # 0.6 (0-1.0) k/uL Eosinophils # 0.1 (0-0.7) k/uL Basophils # 0.0 (0-0.2) k/uL Sodium 138 (137-145) mmol/L Potassium 3.5 (3.5-5.1) mmol/L Chloride 100 (98-107) mmol/L Carbon Dioxide 27 (22-30) mmol/L Anion Gap 11 mmol/L BUN 20 (9-20) mg/dL Creatinine 0.78 (0.66-1.25) mg/dL Est GFR (CKD-EPI)AfAm >90 (>60 ml/min/1.73 sqM) Est GFR (CKD-EPI)NonAf >90 (>60 ml/min/1.73 sqM) Glucose 98 (74-99) mg/dL Calcium 9.2 (8.4-10.2) mg/dL Total Bilirubin 1.1 (0.2-1.3) mg/dL AST 36 (17-59) U/L ALT 44 (21-72) U/L Alkaline Phosphatase 68 (38-126) U/L Total Protein 7.8 (6.3-8.2) g/dL Albumin 4.4 (3.5-5.0) g/dL Amylase 37 (30-110) U/L Lipase 81 (23-300) U/L Urine Color Yellow Urine Appearance Clear (Clear) Urine pH 5.5 (5.0-8.0) Ur Specific [place] 1.023 (1.001-1.035) Urine Protein Trace H (Negative) Urine Glucose (UA) Negative (Negative) Urine Ketones 1+ H (Negative) Urine Blood Small H (Negative) Urine Nitrite Negative (Negative) Urine Bilirubin Negative (Negative) Urine Urobilinogen 2.0 (<2.0) mg/dL Ur Leukocyte Esterase Negative (Negative) Urine RBC 11 H (0-5) /hpf Urine WBC 1 (0-5) /hpf Ur Squamous Epith Cells <1 (0-4) /hpf Amorphous Sediment Rare H (None) /hpf Hyaline Casts 1 (0-2) /lpf Urine Mucus Occasional H (None) /hpf Disposition Clinical Impression: Dehydration, Ileus Disposition: ADMITTED IP TO THIS HOSP Condition: Stable Is patient prescribed a controlled substance at d/c from ED?: No Referrals: Yasmin Tejeda MD [Primary Care Provider] - 1-2 days Decision to Admit Reason: Admit from EC Decision Date: 08/18/18 Decision Time: 14:49
[2018-08-18 13:11] LABS: Basophils % (A) 1 %; Eosinophils # (A) 0.1 k/uL (0-0.7); Eosinophils % (A) 1 %; HCT 45.6 % (39.0-53.0); HGB 15.6 gm/dL (13.0-17.5); Lymphocytes # (A) 1.4 k/uL (1.0-4.8); Lymphocytes % (A) 22 %; MCH 27.7 pg (25.0-35.0); MCHC 34.1 g/dL (31.0-37.0); MCV 81.2 fL (80.0-100.0); Mean Platelet Volume 8.8; Monocytes # (A) 0.6 k/uL (0-1.0); Monocytes % (A) 9 %; Neutrophils # (A) 4.2 k/uL (1.3-7.7); Neutrophils % (A) 65 %; Platelet Count 200 k/uL (150-450); RBC 5.61 m/uL (4.30-5.90); RDW 13.5 % (11.5-15.5); WBC 6.5 k/uL (3.8-10.6)
[2018-08-18 13:15] LABS: ALT 44 U/L (21-72); AST 36 U/L (17-59); Albumin 4.4 g/dL (3.5-5.0); Alkaline Phosphatase 68 U/L (38-126); Amylase 37 U/L (30-110); Anion Gap 11 mmol/L; Blood Urea Nitrogen 20 mg/dL (9-20); Calcium 9.2 mg/dL (8.4-10.2); Carbon Dioxide 27 mmol/L (22-30); Chloride 100 mmol/L (98-107); Glucose 98 mg/dL (74-99); Lipase 81 U/L (23-300); Potassium 3.5 mmol/L (3.5-5.1); Sodium 138 mmol/L (137-145); Total Bilirubin 1.1 mg/dL (0.2-1.3); Total Protein 7.8 g/dL (6.3-8.2)
--- NOTE | 2018-08-18 13:15 | XR ---
Abdomen HISTORY: Lower abdomen pain Frontal view of the abdomen on 2 images correlated to prior exam 05/10/2013 There are air-fluid levels, gas-distended small bowel noted in the right upper quadrant and midabdome n. Postop changes are present. No pneumoperitoneum or pathologic calcification evident. IMPRESSION: Correlate for enteritis, ileus or bowel obstruction, follow-up as indicated.
[2018-08-18 14:18] LABS: Amorphous Sediment,Urine Rare /hpf; Appearance,Urine Clear (Clear); Bilirubin,Urine Negative (Negative); Blood,Urine Small (Negative); Color,Urine Yellow; Glucose,Urine (UA) Negative (Negative); Hyaline Casts,Urine 1 /lpf (0-2); Ketones,Urine 1+ (Negative); Leukocyte Esterase,Urine Negative (Negative); Mucus,Urine Occasional /hpf; Nitrite,Urine Negative (Negative); PH, Urine 5.5 (5.0-8.0); Protein,Urine Trace (Negative); RBC,Urine 11 /hpf (0-5); Specific Gravity,Urine 1.023 (1.001-1.035); Squamous Epithelial Cell,Urine <1 /hpf (0-4); WBC,Urine 1 /hpf (0-5)
[2018-08-18] MEDS ORDERED: MORPHINE SULFATE 4 MG/ML SYRINGE IV PRN (14:45)
[2018-08-18] MEDS ORDERED: NALOXONE 0.4 MG/ML 1 ML VIAL IV PRN (14:45)
[2018-08-18] MEDS ORDERED: ONDANSETRON 4 MG/2 ML VIAL IVP PRN (14:45)
[2018-08-18] MEDS: SODIUM CHLORIDE 0.9% 1,000 ML IV SCH (15:16)
[2018-08-18] MEDS ORDERED: ACETAMINOPHEN TAB 325 MG TAB PO PRN (15:29)
--- NOTE | 2018-08-18 17:39 | P.HPIM ---
History of Present Illness H&P Date: 08/18/18 Chief Complaint: nausea vomiting, abdominal pain 43-year-old male with PMH of hernia repair in 2014, history of testicular cancer post surgery following Dr. Marte,cholecystectomy presents to the ED for nausea, vomiting and abdominal pain. Patient reports waking up Friday morning with a constellation of symptoms that included multiple episodes of nonbilious nonbloody nausea and vomiting, greater than 10 episodes. The nausea and vomiting was associated with multiple episodes of watery brown diarrhea. Patient denies any blood in his stool or melena. Patient also reports that he had a sick coworker with similar symptoms that he was working with. Patient also reports that he had a salad from [employer] on Friday night. Patient also reports abdominal pain that started 2 days ago. Pain was initially intermittent and has now become constant. Pain is right-sided, colicky and stabbing in nature. The pain radiates to the right side of the back. Pain is 3-8 out of 10 in severity, waxing and waning. There are no alleviating or aggravating factors. Patient reports that his last bowel movement was this morning. He has not passed gas since this morning.of note, patient reports hernia repair that was done in 2014. He also reports a cholecystectomy as well as surgery for testicular cancer. patient denies any headaches, lower extremity edema, fever, chills, chest pain, shortness of breath, palpitations. Patient does report a decreased appetite. Patient also complains of decreased emptying of his bladder. He denies any dysuria or hematuria. In the ED, CBC and CMP were unremarkable. Urinalysis showed small blood in his urine. Abdominal x-ray showed air-fluid levels in the right upper quadrant and midabdomen, correlate for enteritis versus ileus or bowel obstruction. Patient is admitted for abdominal pain, ileus, rule out bowel instruction. General surgery on consult. Review of Systems All systems: negative Past Medical History Past Medical History: Deep Vein Thrombosis (DVT) Additional Past Medical History / Comment(s): KIDNEY STONES History of Any Multi-Drug Resistant Organisms: None Reported Past Surgical History: Appendectomy, Cholecystectomy, Hernia Repair Additional Past Surgical History / Comment(s): UMBILICAL HERNIA, testicular surgery September 24. Varicpse vein stripping Past Anesthesia/Blood Transfusion Reactions: Postoperative Nausea & Vomiting (PONV) Past Psychological History: No Psychological Hx Reported Smoking Status: Never smoker Past Alcohol Use History: Rare Past Drug Use History: None Reported Medications and Allergies Home Medications Medication Instructions Recorded Confirmed Type Aspirin EC [Ecotrin] 325 mg PO DAILY 12/09/17 08/18/18 History Allergies Allergy/AdvReac Type Severity Reaction Status Date / Time rivaroxaban [From Xarelto] Allergy Rash/Hives Verified 08/18/18 12:10 Physical Exam Vitals: Vital Signs Temp Pulse Resp BP Pulse Ox 08/18/18 16:00 89 18 117/71 95 08/18/18 12:52 85 18 129/79 92 L 08/18/18 11:54 97.9 F 97 18 112/70 100 Intake and Output 08/18/18 08/18/18 08/18/18 06:59 14:59 22:59 Other: Voiding Method Toilet Weight 140.614 kg General: [non toxic], [no distress], [appears at stated age] Derm: [warm], [dry] Head: [atraumatic], [normocephalic], [symmetric] Eyes: [EOMI], [no lid lag], [anicteric sclera] Mouth: [no lip lesion], [mucus membranes moist] Cardiovascular: [S1S2 reg], [no murmur], [positive DP pulse bilateral] Lungs: [CTA bilateral], [no rhonchi, no rales] , [no accessory muscle use] Abdominal: [soft], [ nontender to palpation], [no guarding], [decreased bowel sounds in all 4 quadrants, slightly distended but obese, tenderness in the right upper and lower quadrant without rebound] Ext: [no gross muscle atrophy], [no edema], [no contractures] Neuro: [ CN II-XI grossly intact], [no focal neuro deficits] Psych: [Alert], [oriented], [appropriate affect] Results CBC & Chem 7: 08/18/18 12:41 08/18/18 12:41 Labs: Abnormal Lab Results - Last 24 Hours (Table) 08/18/18 Range/Units 13:40 Urine Protein Trace H (Negative) Urine Ketones 1+ H (Negative) Urine Blood Small H (Negative) Urine RBC 11 H (0-5) /hpf Amorphous Sediment Rare H (None) /hpf Urine Mucus Occasional H (None) /hpf Thrombosis Risk Factor Assmnt - Choose All That Apply Each Factor Represents 1 point: Age 41-60 years, Obesity (BMI >25) Thrombosis Risk Factor Assessment Total Risk Factor Score: 2 Thrombosis Risk Factor Assessment Level: Low Risk Assessment and Plan Assessment: Assessment and Plan 1. Ileus likely secondary to acute gastroenteritis 2. Gastroenteritis 3. Difficulty urinating 1. Air-fluid levels, gas-distended small bowel confirmed on KUB. Patient reports bowel movement this morning, currently not passing gas. He has not eaten in the last 2 days.pain management with Tylenol. Zofran as needed for nausea or vomiting. Continue normal saline under cc per hour. Clear liquid diet and advance as tolerated. Will follow general surgery consultation. 2. Likely secondary to either ingested food or contact with sick contacts at work. Tylenol as needed for fever. Patient is afebrile with no leukocytosis. I don't believe there is a need for antibiotics at this time. We'll continue to monitor. 3. Urinalysis shows small blood. Possibility of kidney stone? Patient denies any dysuria. We'll continue to monitor, possibility of computed tomography scan if no improvement tomorrow. Patient admitted for ileus likely secondary to acute gastroenteritis, rule out small bowel obstruction. Gen. surgery is on consult.
[2018-08-19] MEDS: SODIUM CHLORIDE 0.9% 1,000 ML IV SCH ×3 (01:20→20:30)
[2018-08-19] MEDS: ASPIRIN 325 MG TAB PO SCH (09:09)
--- NOTE | 2018-08-19 12:15 | P.PN ---
Subjective Progress Note Date: 08/19/18 Principal diagnosis: Ileus Patient was examined. No acute events overnight. Patient reports improvement in his abdominal pain, continues to complain of mild right-sided discomfort radiating to the right back. Patient reports complete resolution of his urinary complaints. No fever or chills. No nausea or vomiting. Tolerating clear liquids well. Passing gas this morning, but no bowel movement. Objective - Vital Signs Vital signs: Vital Signs Temp 97.6 F 08/19/18 07:00 Pulse 66 08/19/18 07:00 Resp 16 08/19/18 08:00 BP 127/81 08/19/18 07:00 Pulse Ox 95 08/19/18 07:00 Intake & Output 08/18/18 08/19/18 08/19/18 18:59 06:59 18:59 Intake Total 2560 Balance 2560 Weight 140.614 kg Intake: Intake, IV Titration 1200 Amount Sodium Chloride 0.9% 1, 1200 000 ml @ 100 mls/hr IV . Q10H [facility] Rx#:[id number] Oral 1360 Other: Voiding Method Toilet Toilet Toilet # Voids 2 - Exam General: [non toxic], [no distress], [appears at stated age] Derm: [warm], [dry] Head: [atraumatic], [normocephalic], [symmetric] Eyes: [EOMI], [no lid lag], [anicteric sclera] Mouth: [no lip lesion], [mucus membranes moist] Cardiovascular: [S1S2 reg], [no murmur], [positive DP pulse bilateral] Lungs: [CTA bilateral], [no rhonchi, no rales] , [no accessory muscle use] Abdominal: [soft], [ nontender to palpation], [no guarding], [decreased bowel sounds in all 4 quadrants, slightly distended but obese, tenderness in the right upper and lower quadrant without rebound improved from yesterday] Ext: [no gross muscle atrophy], [no edema], [no contractures] Neuro: [ CN II-XI grossly intact], [no focal neuro deficits] Psych: [Alert], [oriented], [appropriate affect] - Labs CBC & Chem 7: 08/18/18 12:41 08/18/18 12:41 Labs: Abnormal Lab Results - Last 24 Hours (Table) 08/18/18 Range/Units 13:40 Urine Protein Trace H (Negative) Urine Ketones 1+ H (Negative) Urine Blood Small H (Negative) Urine RBC 11 H (0-5) /hpf Amorphous Sediment Rare H (None) /hpf Urine Mucus Occasional H (None) /hpf Assessment and Plan Assessment: Assessment and Plan 1. Ileus likely secondary to acute gastroenteritis 2. Gastroenteritis 3. Difficulty urinating 1. Air-fluid levels, gas-distended small bowel confirmed on KUB. Patient passing gas this morning, no bowel movement. He has not eaten in the last 2 days. Pain management with Tylenol. Zofran as needed for nausea or vomiting. Continue normal saline 100 cc per hour. Clear liquid diet advance to full liquid diet. Discussed with Dr. Posada, advance diet to monitor clinically, for discharge later today or tomorrow if able to tolerate diet. Will follow surgery recommendations. 2. Likely secondary to either ingested food or contact with sick contacts at work. Tylenol as needed for fever. Patient is afebrile with no leukocytosis. I don't believe there is a need for antibiotics at this time. We'll continue to monitor. 3. Urinalysis shows small blood. June computed tomography scan shows kidney stone in the left kidney, nonobstructive. Patient admitted for ileus likely secondary to acute gastroenteritis, rule out small bowel obstruction. Gen. surgery is on consult. Patient is pending clinical improvement.
--- NOTE | 2018-08-19 12:54 | P.GSCN ---
<Fidelia Arreguin - Last Filed: 08/19/18 12:37> History of Present Illness Consult date: 08/19/18 Reason for Consult: ileus Requesting physician: Amilcar Barragan History of present illness: CHIEF COMPLAINT: Ileus HISTORY OF PRESENT ILLNESS: 43-year-old male who presented to the emergency room with a chief complaint of right-sided abdominal pain, nausea, and vomiting. Patient reports approximately three days ago he began having right upper and lower quadrant abdominal pain, diarrhea, and multiple episodes of emesis. Denies hematemesis, hematochezia, or melena. 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 Currently, he reports some mild right sided abdominal pain. Denies further episodes of nausea, vomiting, or diarrhea. Patient tolerating clear liquid diet. PAST MEDICAL HISTORY: See list. PAST SURGICAL HISTORY: See list. MEDICATIONS: See list. ALLERGIES: See list. SOCIAL HISTORY: No illicit drug use. REVIEW OF SYSTEMS: CONSTITUTIONAL: Denies fever or chills. HEENT: Denies blurred vision, vision changes, or eye pain. Denies hemoptysis ENDOCRINE: Denies heat or cold intolerance. CARDIOVASCULAR: Denies chest pain or pressure. RESPIRATORY: No shortness of breath. GASTROINTESTINAL: Reports some mild right sided abdominal pain. Reports nausea and vomiting prior to coming to hospital, currently denies. NEURO: Denies history of seizures. PSYCH: No depression or suicidal ideation HEMATOLOGIC: Denies bleeding disorders. LYMPHATIC: The patient denies any lumps and bumps around the neck. GENITOURINARY: Denies any blood in urine or increased urinary frequency. MUSCULOSKELETAL: Denies myalgias. Denies joint swelling. Denies decreased range of motion beyond patients baseline. SKIN: Denies pruitis. Denies rash. PHYSICAL EXAM: VITAL SIGNS: Currently stable. GENERAL: Well-developed in no acute distress. HEENT: No sclera icterus. Extraocular movements grossly intact. Moist buccal mucosa. Head is atraumatic, normocephalic. Hears conversational speech. No nasal drainage. NECK: Supple without lymphadenopathy. CHEST: Non-labored respirations and equal bilateral excursions. CARDIOVASCULAR: Regular rate with regular rhythm. Palpable 2+ radial pulses. ABDOMEN: Soft. Nondistended. Mild tenderness upon palpation of right lower quadrant MUSCULOSKELETAL: No clubbing, cyanosis or edema. NEUROLOGIC: No focal or lateralizing signs. Cranial nerves II through XII grossly intact. PSYCH: Appropriate affect. Alert and oriented to person, place and time. SKIN: Well perfused. Good skin turgor. IMAGING: KUB x-ray: Air fluid levels, gas-distended Small Bowel Noted in the Right Upper Quadrant and Midabdomen. Correlate for Enteritis, Ileus, or Bowel obstruction. ASSESSMENT: 1. Abdominal pain, nausea, vomiting, and diarrhea suspect secondary to viral gastroenteritis PLAN: Patient is stable from a surgical standpoint. He reports only minimal right sided abdominal pain. Suspect patients symptoms are secondary as viral gastro- enteritis as he was around a coworker who was sick with similar symptoms. His symptoms are resolving. WBC is within normal limits. Will advance diet to full liquid. If patient tolerates, he may be discharged home today from a surgical standpoint Nurse practitioner note has been reviewed by physician. Signing provider agrees with the documented findings, assessment, and plan of care. Past Medical History Past Medical History: Deep Vein Thrombosis (DVT) Additional Past Medical History / Comment(s): KIDNEY STONES History of Any Multi-Drug Resistant Organisms: None Reported Past Surgical History: Appendectomy, Cholecystectomy, Hernia Repair Additional Past Surgical History / Comment(s): UMBILICAL HERNIA, testicular surgery September 24. Varicpse vein stripping Past Anesthesia/Blood Transfusion Reactions: Postoperative Nausea & Vomiting (PONV) Past Psychological History: No Psychological Hx Reported Smoking Status: Never smoker Past Alcohol Use History: Rare Past Drug Use History: None Reported Medications and Allergies Home Medications Medication Instructions Recorded Confirmed Type Aspirin EC [Ecotrin] 325 mg PO DAILY 12/09/17 08/18/18 History Allergies Allergy/AdvReac Type Severity Reaction Status Date / Time rivaroxaban [From Xarelto] Allergy Rash/Hives Verified 08/18/18 12:10 Surgical - Exam Vital Signs Temp Pulse Resp BP Pulse Ox 97.9 F 97 18 112/70 100 08/18/18 11:54 08/18/18 11:54 08/18/18 11:54 08/18/18 11:54 08/18/18 11:54 Results - Labs 08/18/18 12:41 08/18/18 12:41 Abnormal Lab Results - Last 24 Hours (Table) 08/18/18 Range/Units 13:40 Urine Protein Trace H (Negative) Urine Ketones 1+ H (Negative) Urine Blood Small H (Negative) Urine RBC 11 H (0-5) /hpf Amorphous Sediment Rare H (None) /hpf Urine Mucus Occasional H (None) /hpf Diabetes panel 08/18/18 Range/Units 12:41 Sodium 138 (137-145) mmol/L Potassium 3.5 (3.5-5.1) mmol/L Chloride 100 (98-107) mmol/L Carbon Dioxide 27 (22-30) mmol/L BUN 20 (9-20) mg/dL Creatinine 0.78 (0.66-1.25) mg/dL Glucose 98 (74-99) mg/dL Calcium 9.2 (8.4-10.2) mg/dL AST 36 (17-59) U/L ALT 44 (21-72) U/L Alkaline Phosphatase 68 (38-126) U/L Total Protein 7.8 (6.3-8.2) g/dL Albumin 4.4 (3.5-5.0) g/dL Calcium panel 08/18/18 Range/Units 12:41 Calcium 9.2 (8.4-10.2) mg/dL Albumin 4.4 (3.5-5.0) g/dL Pituitary panel 08/18/18 Range/Units 12:41 Sodium 138 (137-145) mmol/L Potassium 3.5 (3.5-5.1) mmol/L Chloride 100 (98-107) mmol/L Carbon Dioxide 27 (22-30) mmol/L BUN 20 (9-20) mg/dL Creatinine 0.78 (0.66-1.25) mg/dL Glucose 98 (74-99) mg/dL Calcium 9.2 (8.4-10.2) mg/dL Adrenal panel 08/18/18 Range/Units 12:41 Sodium 138 (137-145) mmol/L Potassium 3.5 (3.5-5.1) mmol/L Chloride 100 (98-107) mmol/L Carbon Dioxide 27 (22-30) mmol/L BUN 20 (9-20) mg/dL Creatinine 0.78 (0.66-1.25) mg/dL Glucose 98 (74-99) mg/dL Calcium 9.2 (8.4-10.2) mg/dL Total Bilirubin 1.1 (0.2-1.3) mg/dL AST 36 (17-59) U/L ALT 44 (21-72) U/L Alkaline Phosphatase 68 (38-126) U/L Total Protein 7.8 (6.3-8.2) g/dL Albumin 4.4 (3.5-5.0) g/dL <Tomi Posada - Last Filed: 08/19/18 18:35> History of Present Illness History of present illness: As above. Patient's symptoms for the most part he states have resolved. Only mild right-sided pain at this time. He is tolerating his diet. We'll advance diet and see if there are any issues with that. Repeat abdominal x-rays today show no significant change. If symptoms persist plan CT Abdomen and pelvis Surgical - Exam Vital Signs Temp Pulse Resp BP Pulse Ox 97.9 F 97 18 112/70 100 08/18/18 11:54 08/18/18 11:54 08/18/18 11:54 08/18/18 11:54 08/18/18 11:54 Results - Labs 08/18/18 12:41 08/18/18 12:41
--- NOTE | 2018-08-19 13:21 | XR ---
EXAMINATION TYPE: XR abdomen 2V DATE OF EXAM: 08/19/2018 COMPARISON: 08/18/2018 HISTORY: Pain TECHNIQUE: One view abdominal series FINDINGS: The osseous structures are intact. The bowel gas pattern is nonspecific. Surgical clips in the right upper quadrant. Persistent prominent small bowel loops with scattered air-fluid levels. Suggestion o f previous surgery hypertrophic changes of the acetabulum. IMPRESSION: 1. Nonspecific pattern suggestive of either ileus or partial obstruction with no significant interval change.
[2018-08-20 00:19] VITALS: RESP 16
[2018-08-20] MEDS: SODIUM CHLORIDE 0.9% 1,000 ML IV SCH ×2 (05:40→17:42)
[2018-08-20] MEDS: ASPIRIN 325 MG TAB PO SCH (07:32)
[2018-08-20] MEDS: IOPAMIDOL-300 CONTRAST 30 ML VIAL (ORAL USE) PO PRN ×2 (09:37→10:55)
--- NOTE | 2018-08-20 11:08 | P.PN ---
Subjective Progress Note Date: 08/20/18 Principal diagnosis: Abdominal pain Patient was seen and examined. No acute events overnight. Patient reports feelings of bloating and abdominal distention, discomfort on the right side. He denies any pain at this time. No nausea or vomiting. Tolerating full liquid diet well. No bowel movement this morning or yesterday. Patient does report that he is passing gas. No fever or chills. Objective - Vital Signs Vital signs: Vital Signs Temp 97.8 F 08/20/18 07:27 Pulse 60 08/20/18 07:27 Resp 16 08/20/18 07:34 BP 127/75 08/20/18 07:27 Pulse Ox 96 08/20/18 07:27 Intake & Output 08/19/18 08/20/18 08/20/18 18:59 06:59 18:59 Intake Total 600 2640 Balance 600 2640 Intake: Intake, IV Titration 1320 Amount Sodium Chloride 0.9% 1, 1320 000 ml @ 100 mls/hr IV . Q10H [facility] Rx#:[id number] Oral 600 1320 Other: Voiding Method Toilet Toilet Toilet # Voids 2 3 1 - Exam General: [non toxic], [no distress], [appears at stated age] Derm: [warm], [dry] Head: [atraumatic], [normocephalic], [symmetric] Eyes: [EOMI], [no lid lag], [anicteric sclera] Mouth: [no lip lesion], [mucus membranes moist] Cardiovascular: [S1S2 reg], [no murmur], [positive DP pulse bilateral] Lungs: [CTA bilateral], [no rhonchi, no rales] , [no accessory muscle use] Abdominal: [soft], [ nontender to palpation], [no guarding], [decreased bowel sounds in all 4 quadrants, slightly distended but obese, tenderness in the right upper and lower quadrant without rebound improved from yesterday] Ext: [no gross muscle atrophy], [no edema], [no contractures] Neuro: [ CN II-XI grossly intact], [no focal neuro deficits] Psych: [Alert], [oriented], [appropriate affect] - Labs CBC & Chem 7: 08/18/18 12:41 03/12/19 12:41 Assessment and Plan Assessment: Assessment and Plan 1. Ileus likely secondary to acute gastroenteritis 2. Gastroenteritis 3. Difficulty urinating 1. Air-fluid levels, gas-distended small bowel confirmed on KUB. Patient passing gas this morning, no bowel movement. He has not eaten in the last 2 days. Pain management with Tylenol. Zofran as needed for nausea or vomiting. Continue normal saline 100 cc per hour. Full liquid diet and advance. Discussed with Dr. Posada, advance diet to monitor clinically, recommend computed tomography scan because patient has not improved. Will follow results of CT abdomen and pelvis. Will follow surgery recommendations. 2. Likely secondary to either ingested food or contact with sick contacts at work. Tylenol as needed for fever. Patient is afebrile with no leukocytosis. I don't believe there is a need for antibiotics at this time. We'll continue to monitor. 3. Urinalysis shows small blood. June computed tomography scan shows kidney stone in the left kidney, nonobstructive. Patient admitted for ileus likely secondary to acute gastroenteritis, rule out small bowel obstruction. Gen. surgery is on consult. Possible DC in the afternoon.
--- NOTE | 2018-08-20 11:16 | P.PN ---
<Fidelia Arreguin A - Last Filed: 08/20/18 11:10> Subjective Progress Note Date: 08/20/18 CHIEF COMPLAINT: Ileus HISTORY OF PRESENT ILLNESS: Patient examined at the bedside. Patient is very labile and at times confusing with his responses to questions this morning and gives different answers during evaluation. Patient reported at first he was pain free this morning then a few minutes later he reported he was still having pain on his right side. Patient then reported "I cant go home until I know whats wrong with me and why im having this pain". Patient tolerating diet. Denies nausea or vomiting. Patient is passing flatus. No BM. He complains of abdominal bloating and distention this morning. Patient reports he is going on a cruise in [place] next week and he is scared about something happening while he is there or having recurrent GI symptoms. PHYSICAL EXAM: VITAL SIGNS: Currently stable. GENERAL: Well-developed in no acute distress. HEENT: No sclera icterus. Extraocular movements grossly intact. Moist buccal mucosa. Head is atraumatic, normocephalic. Hears conversational speech. No nasal drainage. NECK: Supple without lymphadenopathy. CHEST: Non-labored respirations and equal bilateral excursions. CARDIOVASCULAR: Regular rate with regular rhythm. Palpable 2+ radial pulses. ABDOMEN: Soft. Mildly distended, but obese. Mild tenderness upon palpation of lower to mid right quadrant, appears to be improved since yesterday. MUSCULOSKELETAL: No clubbing, cyanosis or edema. NEUROLOGIC: No focal or lateralizing signs. Cranial nerves II through XII grossly intact. PSYCH: Appropriate affect. Alert and oriented to person, place and time. SKIN: Well perfused. Good skin turgor. ASSESSMENT: 1. Abdominal pain, nausea, vomiting, and diarrhea suspect secondary to viral gastroenteritis 2. Ileus, appears to be resolving PLAN: 1. Continue full liquid diet 2. Due to patients continued abdominal pain, will obtain CT scan abdomen/pelvis Nurse practitioner note has been reviewed by physician. Signing provider agrees with the documented findings, assessment, and plan of care. Objective - Vital Signs Vital signs: Vital Signs Temp 97.8 F 08/20/18 07:27 Pulse 60 08/20/18 07:27 Resp 16 08/20/18 07:34 BP 127/75 08/20/18 07:27 Pulse Ox 96 08/20/18 07:27 Intake & Output 08/19/18 08/20/18 08/20/18 18:59 06:59 18:59 Intake Total 600 2640 Balance 600 2640 Intake: Intake, IV Titration 1320 Amount Sodium Chloride 0.9% 1, 1320 000 ml @ 100 mls/hr IV . Q10H [facility] Rx#:[id number] Oral 600 1320 Other: Voiding Method Toilet Toilet Toilet # Voids 2 3 1 - Labs CBC & Chem 7: 08/18/18 12:41 08/18/18 12:41 <Tomi Posada - Last Filed: 08/20/18 18:36> Subjective As above. Patient's pain is absent at this time. Says he is passing a large amount of flatus. Denies cramps. Tolerating full liquids. He is hungry for solid food. He would like to try to go home this evening. Still no bowel movement. CAT scan reviewed. No definite obstruction seen. Some relative collapse of distal small bowel loops without transition point or significant bowel distention. These findings were discussed with the patient in detail. Will advance diet currently. We'll provide one dose of milk of magnesia. Poss ible discharge later today if the patient is tolerating diet. Objective - Vital Signs Vital signs: Vital Signs Temp 98.4 F 08/20/18 14:10 Pulse 81 08/20/18 14:10 Resp 16 08/20/18 15:53 BP 125/84 08/20/18 14:10 Pulse Ox 98 08/20/18 14:10 Intake & Output 08/19/18 08/20/18 08/20/18 18:59 06:59 18:59 Intake Total 600 2640 850 Balance 600 2640 850 Intake: Intake, IV Titration 1320 Amount Sodium Chloride 0.9% 1, 1320 000 ml @ 100 mls/hr IV . Q10H [facility] Rx#:[id number] Oral 600 1320 850 Other: Voiding Method Toilet Toilet Toilet # Voids 2 3 1 - Labs CBC & Chem 7: 08/18/18 12:41 08/18/18 12:41
--- NOTE | 2018-08-20 12:12 | CT ---
EXAMINATION TYPE: CT abdomen pelvis w con DATE OF EXAM: 08/20/2018 COMPARISON: 06/22/2018 HISTORY: 43-year-old male with abdominal pain TECHNIQUE: Contiguous axial scanning of the abdomen and pelvis following administration of 100 ml Iso radha 300 IV contrast. Delayed images through the kidneys and coronal/sagittal reconstructions perform ed. CT DLP: 2318.6 mGycm Automated exposure control for dose reduction was used. FINDINGS: Heart normal size without pericardial effusion. Lung bases clear without pleural effusion. Liver enlarged measuring 20.8 cm. There may be underlying fatty infiltration. No focal lesion is seen . Cholecystectomy clips. Portal venous system is patent. No biliary ductal dilatation. Adrenal glands, kidneys, spleen, and pancreas appear within normal limits. Redemonstrated prior ventral abdominal wall mesh repair with a left paramedian supraumbilical omental fat-containing hernia measuring 8.6 cm wide and 4.6 cm craniocaudal versus 7.0 cm wide on 06/22/2018. The hernia neck remains 2.5 cm wide, not significantly changed. Scattered mildly dilated small bowel loops measuring up to 3.8 cm without a discrete transition point . However, more distal small bowel loops are relatively smaller caliber. Oral contrast extends into t he cecum. No mesenteric or retroperitoneal lymphadenopathy. Bladder partially distended. Some prostatic calcifications are noted. Some nonspecific prominent exte rnal iliac chain lymph nodes are redemonstrated measuring up to 1 cm, unchanged. No abnormal fluid co llection in the pelvis. Pelvic phleboliths. Bones: Mild degenerative changes at the hips. No osseous destructive process. IMPRESSION: 1. PRIOR VENTRAL ABDOMINAL WALL MESH REPAIR BUT WITH A RESIDUAL OR RECURRENT LEFT PARAMEDIAN SUPRAUMB ILICAL hernia containing fat. This measures slightly larger at 8.6 (wide) x 4.6 (craniocaudal) cm eric chiquis 7.0 cm wide on 06/22/2018. The abdominal wall defect remains stable at 2.5 cm. 2. Scattered mildly dilated small bowel loops measuring up to 3.8 cm without discrete transition poin t. Oral contrast also reaches the cecum. Given relatively smaller caliber to distal small bowel loops , ileus and a low-grade partial small bowel obstruction are in the differential. Consider radiographi c follow-up as indicated. 3. Hepatomegaly (20.8 cm).
[2018-08-20] MEDS ORDERED: MAGNESIUM HYDROXIDE 2,400 MG/10 ML CUP PO PRN (18:05)
[2018-08-21 09:03] VITALS: BP 138/88; PULSE 73; TEMP 97.8
[2018-08-21] MEDS: ASPIRIN 325 MG TAB PO SCH (09:07)
--- NOTE | 2018-08-21 10:18 | P.DS ---
Providers Date of admission: 08/18/18 14:54 Expected date of discharge: 08/21/18 Attending physician: Amilcar Barragan MD Consults: 08/18/18 15:28 Consult Physician Stat Consulting Provider: Tomi Posada Reason/Comments: Ileus Do you want consulting provider notified?: Yes [facility] care [facility]: [facility] Course: 43-year-old male with PMH of hernia repair in 2014, history of testicular cancer post surgery following Dr. Marte,cholecystectomy presents to the ED for nausea, vomiting and abdominal pain. Patient reports waking up Friday morning with a constellation of symptoms that included multiple episodes of nonbilious nonbloody nausea and vomiting, greater than 10 episodes. The nausea and vomiting was associated with multiple episodes of watery brown diarrhea. Patient denies any blood in his stool or melena. Patient also reports that he had a sick coworker with similar symptoms that he was working with. Patient also reports that he had a salad from [employer] on Friday night. Patient also reports abdominal pain that started 2 days ago. Pain was initially intermittent and has now become constant. Pain is right- sided, colicky and stabbing in nature. The pain radiates to the right side of the back. Pain is 3-8 out of 10 in severity, waxing and waning. There are no alleviating or aggravating factors. Patient reports that his last bowel movement was this morning. He has not passed gas since this morning.of note, patient reports hernia repair that was done in 2014. He also reports a cholecystectomy as well as surgery for testicular cancer. patient denies any headaches, lower extremity edema, fever, chills, chest pain, shortness of breath, palpitations. Patient does report a decreased appetite. Patient also complains of decreased emptying of his bladder. He denies any dysuria or hematuria. In the ED, CBC and CMP were unremarkable. Urinalysis showed small blood in his urine. Abdominal x-ray showed air-fluid levels in the right upper quadrant and midabdomen, correlate for enteritis versus ileus or bowel obstruction. Patient is admitted for abdominal pain, ileus, rule out bowel instruction. General surgery on consult. Abdominal ultrasound showed gas distended small bowel with air-fluid levels. Patient was given Tylenol for pain. He was given Zofran as needed for nausea or vomiting. He was given normal saline at 100 mL/h. Patient was initially placed on clear liquid diet and advance as tolerated. Gen. surgery was consulted and recommended advancing his diet to full liquid diet and normal diet and to clinically monitor. Computed tomography scan was ordered the following day which showed prior ventral abdominal hernia with residual supraumbilical hernia along with mildly dilated small bowel loops measuring 3.8 cm without discrete transition point, ileus versus low-grade partial small bowel obstruction. Patient was cleared by general surgery if he was able to tolerate a normal diet. Patient was seen and examined prior to discharge. No acute events overnight. Patient reports being able to tolerate his normal diet. He denies any nausea or vomiting. Multiple movements overnight. He does report a right-sided discomfort in his right abdomen. He is looking for to going home. General: [non toxic], [no distress], [appears at stated age] Derm: [warm], [dry] Head: [atraumatic], [normocephalic], [symmetric] Eyes: [EOMI], [no lid lag], [anicteric sclera] Mouth: [no lip lesion], [mucus membranes moist] Cardiovascular: [S1S2 reg], [no murmur], [positive DP pulse bilateral] Lungs: [CTA bilateral], [no rhonchi, no rales] , [no accessory muscle use] Abdominal: [soft], [ nontender to palpation], [no guarding], [decreased bowel sounds in all 4 quadrants, slightly distended but obese, tenderness in the right upper and lower quadrant without rebound improved from yesterday] Ext: [no gross muscle atrophy], [no edema], [no contractures] Neuro: [ CN II-XI grossly intact], [no focal neuro deficits] Psych: [Alert], [oriented], [appropriate affect] Assessment and Plan 1. Ileus likely secondary to acute gastroenteritis 2. Gastroenteritis 3. Difficulty urinating 1. Air-fluid levels, gas-distended small bowel confirmed on KUB. Had multiple bowel movements overnight and this morning. Tolerating regular diet. Pain management with Tylenol. Zofran as needed for nausea or vomiting. Continue normal saline 100 cc per hour. Discussed with general surgery, cleared for discharge. CT of the abdomen and pelvis shows residual supraumbilical hernia along with mildly dilated small bowel loops measuring 3.8 cm without discrete transition point. 2. Likely secondary to either ingested food or contact with sick contacts at work. Tylenol as needed for fever. Patient is afebrile with no leukocytosis. I don't believe there is a need for antibiotics at this time. We'll continue to monitor. 3. Urinalysis shows small blood. June computed tomography scan shows kidney stone in the left kidney, nonobstructive. Patient admitted for ileus likely secondary to acute gastroenteritis, rule out small bowel obstruction. Gen. surgery is on consult. DC home today. Advised of warning symptoms of bowel obstruction. Pertinent Studies: Abdominal pelvis CT, KUB, abdominal x-ray Patient Condition at Discharge: Stable Plan - Discharge Summary Discharge Rx Participant: No New Discharge Prescriptions: Continue Aspirin EC [Ecotrin] 325 mg PO DAILY Discharge Medication List Aspirin EC [Ecotrin] 325 mg PO DAILY 12/09/17 [History] Follow up Appointment(s)/Referral(s): Yasmin Tejeda MD [Primary Care Provider] - 1-2 days Activity/Diet/Wound Care/Special Instructions: Diet: Regular Follow-up with PCP within 1-2 days of discharge. Discharge Disposition: HOME SELF-CARE
--- NOTE | 2018-08-21 11:01 | P.PN ---
<Fidelia Arreguin - Last Filed: 08/21/18 10:59> Subjective Progress Note Date: 08/21/18 CHIEF COMPLAINT: Ileus HISTORY OF PRESENT ILLNESS: Patient examined at the bedside. Patient denies pain or discomfort. Tolerating regular diet. Denies nausea or vomiting. Patient reports BM this morning. Patient is hopeful to be discharged home today. PHYSICAL EXAM: VITAL SIGNS: Currently stable. GENERAL: Well-developed in no acute distress. HEENT: No sclera icterus. Extraocular movements grossly intact. Moist buccal mucosa. Head is atraumatic, normocephalic. Hears conversational speech. No nasal drainage. NECK: Supple without lymphadenopathy. CHEST: Non-labored respirations and equal bilateral excursions. CARDIOVASCULAR: Regular rate with regular rhythm. Palpable 2+ radial pulses. ABDOMEN: Soft. Nondistended. Nontender. MUSCULOSKELETAL: No clubbing, cyanosis or edema. NEUROLOGIC: No focal or lateralizing signs. Cranial nerves II through XII grossly intact. PSYCH: Appropriate affect. Alert and oriented to person, place and time. SKIN: Well perfused. Good skin turgor. ASSESSMENT: 1. Abdominal pain, nausea, vomiting, and diarrhea suspect secondary to viral gastroenteritis 2. Ileus, resolved PLAN: Continue regular diet Patient is stable for discharge from a surgical standpoint. We will sign off. Please re-consult if needed. Nurse practitioner note has been reviewed by physician. Signing provider agrees with the documented findings, assessment, and plan of care. Objective - Vital Signs Vital signs: Vital Signs Temp 97.8 F 08/21/18 09:01 Pulse 73 08/21/18 09:01 Resp 16 08/21/18 09:01 BP 138/88 08/21/18 09:01 Pulse Ox 97 08/21/18 07:00 Intake & Output 08/20/18 08/21/18 08/21/18 18:59 06:59 18:59 Intake Total 850 1350 Balance 850 1350 Intake: Intake, IV Titration 1350 Amount Sodium Chloride 0.9% 1, 1350 000 ml @ 100 mls/hr IV . Q10H [facility] Rx#:[id number] Oral 850 Other: Voiding Method Toilet Toilet # Voids 1 - Labs CBC & Chem 7: 08/18/18 12:41 08/18/18 12:41 <Tomi Posada - Last Filed: 08/21/18 13:46> Subjective Patient was discharged today prior to my arrival. Objective - Vital Signs Vital signs: Vital Signs Temp 97.8 F 08/21/18 09:01 Pulse 73 08/21/18 09:01 Resp 16 08/21/18 09:01 BP 138/88 08/21/18 09:01 Pulse Ox 97 08/21/18 07:00 Intake & Output 08/20/18 08/21/18 08/21/18 18:59 06:59 18:59 Intake Total 850 1350 Balance 850 1350 Intake: Intake, IV Titration 1350 Amount Sodium Chloride 0.9% 1, 1350 000 ml @ 100 mls/hr IV . Q10H [facility] Rx#:[id number] Oral 850 Other: Voiding Method Toilet Toilet # Voids 1 - Labs CBC & Chem 7: 08/18/18 12:41 08/18/18 12:41
== END 2018-08-21 12:08 | disposition home or self-care (01) ==
LOC: EC 11:39 → 4SSUR 14:54 → INTOOBSV 14:54 → 4SSUR 15:52 → UNDODISIN 08-21 12:08
PROVIDERS: ADMIT Family Medicine; ATTEND Family Medicine
DX: K56.7 Ileus, unspecified (principal); A08.4 Viral intestinal infection, unspecified; E86.0 Dehydration; R39.198 Other difficulties with micturition; E66.9 Obesity, unspecified; Z68.39 Body mass index [BMI] 39.0-39.9, adult; Z79.82 Long term (current) use of aspirin; Z86.718 Personal history of other venous thrombosis and embolism; Z87.442 Personal history of urinary calculi; Z85.47 Personal history of malignant neoplasm of testis; Z90.49 Acquired absence of other specified parts of digestive tract; Z88.8 Allergy status to other drugs, medicaments and biological substances
CPT/HCPCS: 96361 ×4; 96374; 96375; 99285; 36415; 80053; 82150; 83690; 85025; 81001; 74018; 74019; 74177; G0378 ×4; J2405; J2270; Q9967

== ENCOUNTER → 2018-10-29 | Outpatient (CLI) | payer OTHER ==
--- NOTE | 2018-10-30 08:41 | CT ---
EXAMINATION TYPE: CT ChestAbdPelvis w con DATE OF EXAM: 10/29/2018 COMPARISON: 08/20/2018 and 06/22/2018 HISTORY: Left testicular CA CT DLP: 1974 mGycm CONTRAST: CT scan of the chest, abdomen and pelvis is performed with Oral Contrast and with IV Contrast, patien t injected with 100 mL of Isovue 300. CT Chest: LUNGS: The lungs are clear and free of infiltrate or atelectasis. No pulmonary nodule or mass is det ected. No pleural effusion or CT evidence of interstitial lung disease. MEDIASTINUM: Thoracic aorta is of normal caliber. The heart is not enlarged. No evidence for media stinal mass or adenopathy. HILAR STRUCTURES: No evidence for mass. No hilar adenopathy is appreciated. OTHER: No significant abnormality. CONTRAST CT ABDOMEN AND PELVIS FINDINGS: LIVER/GB: Cholecystectomy clips identified. Continued hepatomegaly with mild underlying hepatic steat osis. No space occupying hepatic lesion. Biliary tree is of normal caliber. PANCREAS: No inflammation. No distinct mass. SPLEEN: No splenic enlargement. No lesion seen. ADRENALS: No nodule. No thickening. KIDNEYS/BLADDER: No hydronephrosis. No nephrolithiasis. No disctinct renal mass. BOWEL: Normal appendix. Normal bowel caliber. No inflammation. GENITAL ORGANS: No gross abnormality. LYMPH NODES: No greater than 1cm abdominal or pelvic lymph nodes are appreciated. AORTA: No significant abnormality. OSSEOUS STRUCTURES: No significant abnormality is seen. OTHER: Redemonstrated prior ventral abdominal wall mesh repair with a left paramedian supraumbilical omental fat-containing hernia appears stable. IMPRESSION: 1. No CT evidence to suggest metastatic disease. Overall stable examination.
== END | disposition home or self-care (01) ==
LOC: RADCTMAIN 15:49
PROVIDERS: ATTEND Internal Medicine Hematology & Oncology
DX: C62.12 Malignant neoplasm of descended left testis (principal); Z88.8 Allergy status to other drugs, medicaments and biological substances
CPT/HCPCS: 71260; 74177; Q9967

== ENCOUNTER → 2019-01-27 | Outpatient (CLI) | payer OTHER ==
--- NOTE | 2019-01-27 13:18 | CT ---
EXAMINATION TYPE: CT ChestAbdPelvis w con DATE OF EXAM: 01/27/2019 COMPARISON: 10/29/2018 HISTORY: Left testicular cancer CT DLP: 4442.9 mGycm CONTRAST: CT scan of the chest, abdomen and pelvis is performed with Oral Contrast and with IV Contrast, patien t injected with 100 mL of Isovue 300. CT Chest: LUNGS: The lungs are clear and free of infiltrate or atelectasis. No pulmonary nodule or mass is det ected. No pleural effusion or CT evidence of interstitial lung disease. MEDIASTINUM: Thoracic aorta is of normal caliber. The heart is not enlarged. No evidence for media stinal mass or adenopathy. HILAR STRUCTURES: No evidence for mass. No hilar adenopathy is appreciated. OTHER: No significant abnormality. CONTRAST CT ABDOMEN AND PELVIS FINDINGS: LIVER/GB: No calcified gallstones. No space occupying hepatic lesion. Biliary tree is of normal ca liber. PANCREAS: No inflammation. No distinct mass. SPLEEN: No splenic enlargement. No lesion seen. ADRENALS: No nodule. No thickening. KIDNEYS/BLADDER: No hydronephrosis. No nephrolithiasis. No disctinct renal mass. BOWEL: Normal appendix. Normal bowel caliber. No inflammation. GENITAL ORGANS: No gross abnormality. LYMPH NODES: No greater than 1cm abdominal or pelvic lymph nodes are appreciated. AORTA: No significant abnormality. OSSEOUS STRUCTURES: No significant abnormality is seen. OTHER: Redemonstrated prior ventral abdominal wall mesh repair with a left paramedian supraumbilical omental fat-containing hernia appears stable. IMPRESSION: 1. No evidence for metastatic disease. Stable examination.
== END | disposition home or self-care (01) ==
LOC: RADCTMAIN 10:29
PROVIDERS: ATTEND Internal Medicine Hematology & Oncology
DX: C62.12 Malignant neoplasm of descended left testis (principal); Z88.8 Allergy status to other drugs, medicaments and biological substances
CPT/HCPCS: 71260; 74177; Q9967 ×2

== ENCOUNTER → 2019-04-27 | Outpatient (CLI) | payer OTHER ==
[2019-04-27 08:47] LABS: African American GFR (CKD) >90 (>60 ml/min/1.73 sqM); Blood Urea Nitrogen 15 mg/dL (9-20)
--- NOTE | 2019-04-27 10:22 | CT ---
EXAMINATION TYPE: CT ChestAbdPelvis w con DATE OF EXAM: 04/27/2019 COMPARISON: January 27, 2019 HISTORY: Testicular cancer CT DLP: 3494 mGycm CONTRAST: CT scan of the chest, abdomen and pelvis is performed with Oral Contrast and with IV Contrast, patien t injected with 100 ml mL of Isovue 300. CT Chest: LUNGS: The lungs are clear and free of infiltrate or atelectasis. No pulmonary nodule or mass is det ected. No pleural effusion or CT evidence of interstitial lung disease. MEDIASTINUM: Thoracic aorta is of normal caliber. The heart is not enlarged. No evidence for media stinal mass or adenopathy. HILAR STRUCTURES: No evidence for mass. No hilar adenopathy is appreciated. OTHER: No significant abnormality. CONTRAST CT ABDOMEN AND PELVIS FINDINGS: LIVER/GB: No calcified gallstones. No space occupying hepatic lesion. Biliary tree is of normal ca liber. PANCREAS: No inflammation. No distinct mass. SPLEEN: No splenic enlargement. No lesion seen. ADRENALS: No nodule. No thickening. KIDNEYS/BLADDER: No hydronephrosis. No nephrolithiasis. No disctinct renal mass. BOWEL: Normal appendix. Normal bowel caliber. No inflammation. GENITAL ORGANS: No gross abnormality. LYMPH NODES: No greater than 1cm abdominal or pelvic lymph nodes are appreciated. AORTA: No significant abnormality. OSSEOUS STRUCTURES: No significant abnormality is seen. OTHER: Fat-containing ventral hernia redemonstrated. IMPRESSION: 1. No evidence for metastatic disease or recurrent disease. 2. Mild fatty liver.
== END | disposition home or self-care (01) ==
LOC: RADCTMAIN 08:05
PROVIDERS: ATTEND Internal Medicine Hematology & Oncology
DX: K76.0 Fatty (change of) liver, not elsewhere classified (principal); C62.12 Malignant neoplasm of descended left testis; Z88.1 Allergy status to other antibiotic agents
CPT/HCPCS: 82565; 84520; 71260; 74177; 36415; Q9967

== ENCOUNTER → 2019-12-08 | Outpatient (CLI) | payer BC ==
--- NOTE | 2019-12-09 09:28 | CT ---
EXAMINATION TYPE: CT ChestAbdPelvis w con DATE OF EXAM: 12/08/2019 COMPARISON: 04/27/2019 HISTORY: Left testicular cancer. CT DLP: 2746.2 mGycm CONTRAST: CT scan of the chest, abdomen and pelvis is performed with Oral Contrast and with IV Contrast, patien t injected with 100 mL of Isovue M300. CT Chest: LUNGS: The lungs are clear and free of infiltrate or atelectasis. No pulmonary nodule or mass is det ected. No pleural effusion or CT evidence of interstitial lung disease. MEDIASTINUM: Thoracic aorta is of normal caliber. The heart is not enlarged. No evidence for media stinal mass or adenopathy. HILAR STRUCTURES: No evidence for mass. No hilar adenopathy is appreciated. OTHER: No significant abnormality. CONTRAST CT ABDOMEN AND PELVIS FINDINGS: LIVER/GB: The gallbladder surgically absent. No space occupying hepatic lesion. Biliary tree is of no rmal caliber. PANCREAS: No inflammation. No distinct mass. SPLEEN: No splenic enlargement. No lesion seen. ADRENALS: No nodule. No thickening. KIDNEYS/BLADDER: No hydronephrosis. No nephrolithiasis. No distinct renal mass. BOWEL: Normal appendix. Normal bowel caliber. No inflammation. GENITAL ORGANS: No gross abnormality. LYMPH NODES: No greater than 1cm abdominal or pelvic lymph nodes are appreciated. AORTA: No significant abnormality. OSSEOUS STRUCTURES: No significant abnormality is seen. OTHER: Ventral fat containing hernia again noted. IMPRESSION: 1. No evidence for metastatic disease. 2. Ventral fat-containing hernia.
== END | disposition home or self-care (01) ==
LOC: RADCTMAIN 17:43
PROVIDERS: ATTEND Internal Medicine Hematology & Oncology
DX: K43.9 Ventral hernia without obstruction or gangrene (principal); C62.12 Malignant neoplasm of descended left testis; Z79.01 Long term (current) use of anticoagulants
CPT/HCPCS: 71260; 74177; Q9967 ×2

== ENCOUNTER → 2020-01-27 | Outpatient (CLI) | payer BC | END | disposition home or self-care (01) | LOC: LABWHC1 09:49 | PROVIDERS: ATTEND Emergency Medicine | DX: Z20.828 Contact with and (suspected) exposure to other viral communicable diseases (principal) | CPT/HCPCS: U0003; C9803 ==

== ENCOUNTER → 2020-07-31 | Outpatient (CLI) | payer BC ==
--- NOTE | 2020-07-31 12:54 | CT ---
EXAMINATION TYPE: CT ChestAbdPelvis w con DATE OF EXAM: 07/31/2020 COMPARISON: 12/08/2019 and 04/27/2019 HISTORY: 45-year-old male C62.12, testicular CA TECHNIQUE: Contiguous axial scanning of the chest, abdomen, and pelvis performed with IV Contrast, pa tient injected with 100 mL of Isovue 300. Delayed images through the kidneys were obtained. Coronal/s agittal reconstructions performed. CT DLP: 2709.4 mGycm Automated exposure control for dose reduction was used. FINDINGS: CHEST: The heart is normal size without pericardial effusion. Aorta normal caliber with conventional arch vessel branching anatomy. No thoracic lymphadenopathy by CT size criteria. Lungs show some strandy atelectasis inferiorly. No consolidation or pleural effusion. ABDOMEN: No focal liver lesion or biliary ductal dilatation. Portal venous system appears patent. Cholecystectomy clips. Adrenal glands, right kidney, spleen, and pancreas appear within normal limits . Nonobstructive 4 mm left renal calculus. No dilated small bowel, free fluid, or free air. Oral contrast progressed to the cecum. There is mild to moderate stool burden. No pericolic inflammat ory change. Previous ventral abdominal wall mesh repair with a residual recurrent umbilical hernia. This is enlar ged now containing a loop of nonobstructed mid transverse colon. Hernia sac measures up to 6.8 cm wid e versus 4.9 cm wide, previously. No mesenteric or retroperitoneal lymphadenopathy. PELVIS: Some central prostatic calcifications. Prostate gland measures 4.1 cm wide. Mild circumferential blad alexander wall thickening. Borderline-sized left inguinal lymph node at 1.5 cm remains unchanged. No new or progressive lymphade nopathy is seen. Couple external iliac chain lymph nodes on both sides are unchanged measuring up to 1 cm. BONES: Mild degenerative change of both hips. No osseous destructive process seen. IMPRESSION: 1. BORDERLINE SIZED 1.5 CM LEFT INGUINAL LYMPH NODE AND ADDITIONAL BORDERLINE SIZED EXTERNAL ILIAC CH AIN LYMPH NODES MEASURING UP TO 1 CM REMAIN STABLE BACK TO AT LEAST 04/27/2019 SUGGESTING A BENIGN ET IOLOGY. 2. NO NEW OR PROGRESSIVE LYMPHADENOPATHY OR MASS TO SUGGEST RECURRENT OR METASTATIC DISEASE. 3. PREVIOUS VENTRAL ABDOMINAL WALL MESH REPAIR BUT WITH A ENLARGING MIDLINE HERNIA NOW CONTAINING A L OOP OF NONOBSTRUCTED TRANSVERSE COLON MEASURING 6.8 CM WIDE VERSUS 4.9 CM WIDE, PREVIOUSLY.
== END | disposition home or self-care (01) ==
LOC: RADCTMAIN 09:36
PROVIDERS: ATTEND Internal Medicine Hematology & Oncology
DX: K46.9 Unspecified abdominal hernia without obstruction or gangrene (principal); K63.89 Other specified diseases of intestine; C62.12 Malignant neoplasm of descended left testis; Z88.8 Allergy status to other drugs, medicaments and biological substances; Z98.890 Other specified postprocedural states
CPT/HCPCS: 71260; 74177; Q9967

== ENCOUNTER → 2021-01-29 | Outpatient (CLI) | payer BC ==
[2021-01-29 11:20] LABS: African American GFR (CKD) >90 (>60 ml/min/1.73 sqM); Blood Urea Nitrogen 11 mg/dL (9-20); Non-African American GFR(CKD) >90 (>60 ml/min/1.73 sqM)
--- NOTE | 2021-01-29 13:17 | CT ---
EXAMINATION TYPE: CT ChestAbdPelvis w con DATE OF EXAM: 01/29/2021 COMPARISON: 07/31/2020, 12/08/2019, 04/27/2019 HISTORY: 45-year-old male C62.12 Testicular cancer, Z03.89 observations for mets. TECHNIQUE: Contiguous axial scanning of the chest, abdomen, and pelvis performed with IV Contrast, pa tient injected with 100 mL of Isovue M300. Delayed images through the kidneys were obtained. Coronal/ sagittal reconstructions performed. CT DLP: 2717.9 mGycm Automated exposure control for dose reduction was used. FINDINGS: CHEST: The heart is normal size without pericardial effusion. Aorta normal caliber with conventional arch vessel branching anatomy. No thoracic lymphadenopathy by CT size criteria. Some strandy basilar areas of atelectasis. No consolidation or pleural effusion. ABDOMEN: No focal liver lesion or biliary ductal dilatation. Portal venous system is patent. Cholecystectomy clips. Adrenal glands, kidneys, spleen, and pancreas within normal limits. Supraumbilical ventral abdominal wall hernia redemonstrated. There are surrounding mesh repair. Short segment of nonobstructed mid transverse colon continues to extend into the hernia sac which measures approximately 6.8 mm wide, not significantly changed from 07/31/2020 but gradually enlarging from old er priors. No dilated small bowel, free fluid, or free air. No mesenteric or retroperitoneal lymphadenopathy. Oral contrast progressed to the proximal transverse colon. Mild overall stool burden. No pericolic in flammatory change. PELVIS: Mild circumferential bladder wall thickening is unchanged. Pelvic phleboliths. Prostate gland normal size at 3.7 cm wide. Inguinal chain lymph nodes remain prominent measuring up to 1.5 cm short axis. N o progressive lymphadenopathy is seen. Right external iliac chain lymph node is stable at 1.0 cm. BONES: Small bone islands about both hips. No osseous destructive process. IMPRESSION: 1. BORDERLINE SIZED INGUINAL CHAIN LYMPH NODES MEASURING UP TO 1.5 CM AND RIGHT EXTERNAL ILIAC CHAIN LYMPH NODE MEASURING 1.0 CM REMAIN UNCHANGED. NO PROGRESSIVE LYMPHADENOPATHY OR SUSPICIOUS MASS TO FERNANDEZ GGEST DISEASE PROGRESSION. 2. SUPRAUMBILICAL VENTRAL MIDLINE ABDOMINAL WALL HERNIA IS REDEMONSTRATED. THERE IS SURROUNDING MESH REPAIR. A SHORT SEGMENT OF NONOBSTRUCTED TRANSVERSE COLON CONTINUES TO EXTEND INTO THE HERNIA SAC WHI CH MEASURES 6.8 CM WIDE, NOT SIGNIFICANTLY CHANGED FROM THE 07/31/2020 PRIOR BUT GRADUALLY ENLARGING F ROM OLDER PRIORS.
== END | disposition home or self-care (01) ==
LOC: RADCTMAIN 10:38
PROVIDERS: ATTEND Internal Medicine Hematology & Oncology
DX: C62.90 Malignant neoplasm of unspecified testis, unspecified whether descended or undescended (principal); K43.9 Ventral hernia without obstruction or gangrene
CPT/HCPCS: 82565; 84520; 71260; 74177; 36415; Q9967 ×2

== ENCOUNTER → 2022-02-23 | Outpatient (CLI) | payer BC ==
[2022-02-23 15:53] LABS: Basophils # (A) 0.04 X 10*3/uL (0.00-0.10); Basophils % (A) 0.5 %; Eosinophils # (A) 0.19 X 10*3/uL (0.04-0.35); Eosinophils % (A) 2.5 %; HCT 45.6 % (39.6-50.0); Immature Grans, Automated 0.3 %; Lymphocytes # (A) 2.03 X 10*3/uL (0.90-5.00); Lymphocytes % (A) 26.3 %; MCH 27.8 pg (27.0-32.0); MCHC 32.9 g/dL (32.0-37.0); MCV 84.6 fL (80.0-97.0); Mean Platelet Volume 11.9 fL (9.5-12.2); Monocytes # (A) 0.54 X 10*3/uL (0.20-1.00); NRBC Per 100 WBC 0 /100 WBCS (0.0-0.0); Neutrophils # (A) 4.91 X 10*3/uL (1.80-7.70); Neutrophils % (A) 63.4 %; Platelet Count 199 X 10*3/uL (140-440); RBC 5.39 X 10*6/uL (4.40-5.60); RDW 13.2 % (11.5-14.5); WBC 7.73 X 10*3/uL (4.50-10.00)
[2022-02-23 16:18] LABS: ALT 16 U/L (10-49); AST 17 U/L (14-35); African American GFR (CKD) 119.1 (60.0-200.0); Albumin 4.4 g/dL (3.8-4.9); Albumin/Globulin Ratio 1.57 (1.60-3.17); Alkaline Phosphatase 68 U/L (41-126); BUN/Creat Ratio 15.67 Ratio (12.00-20.00); Blood Urea Nitrogen 14.1 mg/dL (9.0-27.0); Calcium 9.2 mg/dL (8.7-10.3); Chloride 104 mmol/L (96-109); Chol/HDL Ratio 5.54 Ratio; Globulin 2.8 g/dL (1.6-3.3); Glucose 105 mg/dL (70-110); LDL Cholesterol,Calculated 139.1 mg/dL (0.0-131.0); Non-African American GFR(CKD) 102.8 (60.0-200.0); Potassium 4.9 mmol/L (3.5-5.5); Sodium 141 mmol/L (135-145); Total Protein 7.2 g/dL (6.2-8.2); VLDL Calculation 15.84 mg/dL (5.00-40.00)
== END | disposition home or self-care (01) ==
LOC: LABWHC1 11:10
PROVIDERS: ATTEND Family Medicine
DX: I26.99 Other pulmonary embolism without acute cor pulmonale (principal)
CPT/HCPCS: 36415; 80053; 80061; 83036; 84443; 85025

== ENCOUNTER → 2022-06-27 | Outpatient (CLI) | payer BC ==
--- NOTE | 2022-06-27 11:44 | P.SLEEP ---
History of Present Illness DATE: 06/27/2022 CONSULTATION/NEW PATIENT EVALUATION HISTORY OF PRESENT ILLNESS/SLEEP-WAKE EVALUATION: 47-year-old gentleman had been evaluated in the sleep center for obstructive sleep apnea hypopnea syndrome. Patient had sleep study in our institution 2015, which showed extremely severe obstructive sleep apnea hypopnea syndrome. Patient was recommended to proceed with CPAP titration at the time but it was not done. SLEEP SCHEDULE: Usually sleep schedule from 10 PM to 6 AM on weekdays and from 11 PM to 7 AM on weekend. FALLING ASLEEP: Usually no significant problems with falling asleep. DURING SLEEP: Patient snores and wakes up from sleep one time to use restroom. No history of hypnogogical hallucinations, sleep paralysis, or cataplexy. DURING THE DAY/WAKE STATE: In the morning patient wake up tired, falling asleep during the day. [place] sleepiness scale is very high range of 22. Patient takes nap around 8 PM. PAST MEDICAL HISTORY: Deep venous thrombosis in both legs, testicular cancer. PAST SURGICAL HISTORY: Left leg surgery for venous problems. MEDICATIONS: Aspirin 325 mg once a day. SOCIAL HISTORY: Negative for smoking, alcohol consumption occasional. FAMILY HISTORY: Heart problems. REVIEW OF SYSTEMS: Snoring, significant excessive daytime sleepiness. No fevers. No double vision. No recent chest pain. No shortness of breath. No abdominal pain. No bleeding episodes. No blood in urine. No seizure episodes. PHYSICAL EXAMINATION: GENERAL: A pleasant patient without any distress. VITAL SIGNS: BP 124/85, HR 81, RR 18, weight 312.8 pounds, height 6 foot 1.25 inches, body mass index 40.9. HEENT: PERRLA, EOMI. Evaluation of oropharynx showed tongue protrudes midline, low position of soft palate Mallampati 4. NECK: Supple. No JVD. Thyroid is not palpable. 18.75 inches in circumference. LUNGS: Clear to percussion and to auscultation. Good air exchange. No wheezing or rhonchi. HEART: S1, S2 regular. No murmurs, gallops or rubs. ABDOMEN: Soft and nontender. Bowel sounds are present. No organomegaly appreciated. EXTREMITIES: No clubbing or cyanosis. SALES ASSOCIATE: Awake, alert, and oriented x3. Cranial nerves 2 to 7 intact. There is no fasciculation or atrophy noted. No focal deficits observed. ASSESSMENT: 1. Snoring, significant excessive daytime sleepiness [place] sleepiness scale increased to 22, extremely low position of soft palate Mallampati 4. History of obstructive sleep apnea hypopnea syndrome in severe range in the past. Obstructive sleep apnea hypopnea syndrome. 2. Obesity body mass index 40.9. 3. History of DVT of both legs. 4. Status post left leg surgical treatment for venous problems.. PLAN: 1. Home sleep apnea test . 2. CPAP/BiPAP titration if sleep study confirms obstructive sleep apnea- hypopnea syndrome. 3. Preferable position during sleep on the side. 4. No driving if patient feels any sleepiness. Patient is aware of civil and criminal liability for unsafe driving. 5. Sleep hygiene with regular sleep time for at least 7.5-8 hours. 6. Watching and losing weight. Thank you very much for referring this patient for consultation. Sincerely, Jakob Patel MD, PhD, FAASM. Diplomat of [place] [employer], Sleep Medicine Board by [place] [employer] [place] [employer] Manager Performance of [facility] [place] Past Medical History Past Medical History: Deep Vein Thrombosis (DVT) Additional Past Medical History / Comment(s): KIDNEY STONES History of Any Multi-Drug Resistant Organisms: None Reported Past Surgical History: Appendectomy, Cholecystectomy, Hernia Repair Additional Past Surgical History / Comment(s): UMBILICAL HERNIA, testicular surgery September 24. Varicpse vein stripping Past Anesthesia/Blood Transfusion Reactions: Postoperative Nausea & Vomiting (PONV) Past Psychological History: No Psychological Hx Reported Past Alcohol Use History: Rare Past Drug Use History: None Reported - Past Family History Mother Family Medical History: Diabetes Mellitus Father Family Medical History: Coronary Artery Disease (CAD) Medications and Allergies Home Medications Medication Instructions Recorded Confirmed Type Aspirin EC [Ecotrin] 325 mg PO DAILY 12/09/17 08/18/18 History Allergies Allergy/AdvReac Type Severity Reaction Status Date / Time rivaroxaban [From Xarelto] Allergy Rash/Hives Verified 08/18/18 12:10 Sleep Note - Sleep Note Sleep Note: Temperature: Pulse Rate: Respiratory Rate: Blood Pressure: SpO2: Height: Weight: BMI: Neck Circumference:
== END ==
LOC: SLEEP 10:59
PROVIDERS: ATTEND Internal Medicine
DX: G47.33 Obstructive sleep apnea (adult) (pediatric) (principal); Z99.89 Dependence on other enabling machines and devices; E66.9 Obesity, unspecified; Z68.41 Body mass index [BMI] 40.0-44.9, adult; Z98.890 Other specified postprocedural states; Z86.718 Personal history of other venous thrombosis and embolism; Z88.8 Allergy status to other drugs, medicaments and biological substances
CPT/HCPCS: 99211

== ENCOUNTER → 2023-05-19 | Outpatient (CLI) | payer BC ==
--- NOTE | 2023-05-21 09:31 | MR ---
EXAMINATION TYPE: MR knee LT wo con DATE OF EXAM: 05/19/2023 COMPARISON: Left knee radiograph 09/24/2022 HISTORY: Left knee pain. TECHNIQUE: Multiplanar, multisequence imaging of the left knee is performed without contrast. FINDINGS: Medial meniscus: Focal nondisplaced horizontal flap tear of the body medial meniscus contacting the t ibial articular surface Medial compartment cartilage: Partial-thickness thinning of the medial compartment cartilage. Medial collateral ligament: Intrasubstance and surrounding increased signal, relating to low-grade sp rain. Lateral meniscus: Intact. Lateral compartment cartilage: Partial-thickness thinning of the lateral compartment cartilage. Lateral collateral ligament: Intact. Patellofemoral alignment: Normal. Patellofemoral compartment cartilage: Partial-thickness thinning of the patellofemoral cartilage. Extensor mechanism: Normal. Anterior cruciate ligament: Intact. Posterior cruciate ligament: Intact. Bone marrow: Normal. Soft tissues: Normal. No joint effusion. No Arreguin's cyst. Neurovascular: Normal. IMPRESSION: 1. Small horizontal flap tear medial meniscus body. 2. Low-grade MCL sprain. 3. Tricompartmental mild chondromalacia
== END | disposition home or self-care (01) ==
LOC: RADMRIMAIN 20:15
PROVIDERS: ATTEND Orthopaedic Surgery
DX: S83.242A Other tear of medial meniscus, current injury, left knee, initial encounter (principal); S83.412A Sprain of medial collateral ligament of left knee, initial encounter; M94.262 Chondromalacia, left knee